=== PATIENT | female | born 1975 | race African-American/Black ===

== ENCOUNTER 2023-12-17 12:13 | Observation (INO) ==
[2023-12-17] MEDS ORDERED: NS 1,000 ML IV 1,000 ML ONE (12:26)
--- NOTE | 2023-12-17 12:33 | DR.DIZZY ---
HPI Time seen Time Seen by Provider: 12/17/23 12:30 PMH PMH Past Surgical History: Yes Family History Family Medical History: Diabetes Mellitus and Hypertension Social History Do you use any recreational Drugs:: No PE Vital Signs Vitals: Vital Signs Temperature 98.9 F Pulse Rate 107 Pulse Rate 113 Pulse Rate 108 Pulse Rate 107 Pulse Rate 125 Pulse Rate 111 Pulse Rate 125 Pulse Rate 119 Pulse Rate 116 Pulse Rate 117 Pulse Rate 116 Pulse Rate 119 Pulse Rate 117 Pulse Rate 112 Pulse Rate 123 Pulse Rate 123 Pulse Rate 124 Pulse Rate 126 Pulse Rate 123 Pulse Rate 135 Pulse Rate 136 Pulse Rate 137 Pulse Rate 138 Pulse Rate 130 Respiratory Rate 14 Respiratory Rate 15 Respiratory Rate 13 Respiratory Rate 13 Respiratory Rate 15 Respiratory Rate 15 Respiratory Rate 15 Respiratory Rate 13 Respiratory Rate 15 Respiratory Rate 15 Respiratory Rate 12 Respiratory Rate 13 Respiratory Rate 13 Respiratory Rate 12 Respiratory Rate 12 Respiratory Rate 16 Respiratory Rate 12 Respiratory Rate 16 Respiratory Rate 15 Respiratory Rate 15 Respiratory Rate 16 Respiratory Rate 16 Respiratory Rate 15 Respiratory Rate 25 Blood Pressure 138/75 Blood Pressure 138/70 Blood Pressure 116/76 Blood Pressure 115/89 Blood Pressure 115/89 Blood Pressure 115/89 Blood Pressure 154/94 Blood Pressure 173/102 Blood Pressure 134/79 Blood Pressure 132/77 Blood Pressure 187/78 Blood Pressure 138/61 Blood Pressure 138/61 Blood Pressure 140/80 O2 Sat by Pulse Oximetry 100 O2 Sat by Pulse Oximetry 100 O2 Sat by Pulse Oximetry 100 O2 Sat by Pulse Oximetry 100 O2 Sat by Pulse Oximetry 100 O2 Sat by Pulse Oximetry 100 O2 Sat by Pulse Oximetry 100 O2 Sat by Pulse Oximetry 100 O2 Sat by Pulse Oximetry 100 O2 Sat by Pulse Oximetry 100 O2 Sat by Pulse Oximetry 100 O2 Sat by Pulse Oximetry 100 O2 Sat by Pulse Oximetry 100 O2 Sat by Pulse Oximetry 100 O2 Sat by Pulse Oximetry 100 O2 Sat by Pulse Oximetry 100 O2 Sat by Pulse Oximetry 100 O2 Sat by Pulse Oximetry 92 O2 Sat by Pulse Oximetry 100 O2 Sat by Pulse Oximetry 100 O2 Sat by Pulse Oximetry 100 O2 Sat by Pulse Oximetry 99 O2 Sat by Pulse Oximetry 100 O2 Sat by Pulse Oximetry 100 ROR Labs Reviewed 12/17/23 12:40 12/17/23 13:40 Laboratory: WBC 6.2 X10^3/uL (3.6-10.0) 12/17/23 12:40 RBC 5.69 X10^6/uL (3.5-5.4) H 02/19/24 12:40 Hgb 14.1 g/dL (12.0-16.0) 12/17/23 12:40 Hct 44.0 % (36.0-47.0) 12/17/23 12:40 MCV 77.4 fL (80.0-100.0) L 12/17/23 12:40 MCH 24.8 pg (27.0-34.0) L 12/17/23 12:40 MCHC 32.1 g/dL (33.0-35.0) L 12/17/23 12:40 RDW 18.9 % (11.6-16.5) H 12/17/23 12:40 Plt Count 286 X10^3/uL (150.0-450.0) 12/17/23 12:40 MPV 7.9 fL (7.4-11.0) 12/17/23 12:40 Neut % (Auto) 85.5 % (42.0-75.0) H 12/17/23 12:40 Lymph % (Auto) 10.6 % (21.0-51.0) L 12/17/23 12:40 [place] % (Auto) 3.4 % (0.0-13.0) 12/17/23 12:40 Eos % (Auto) 0.3 % (0.9-2.9) L 12/17/23 12:40 Baso % (Auto) 0.2 % (0.2-1.0) 12/17/23 12:40 Neut # (Auto) 5.3 x10^3/uL (2.2-4.8) H 12/17/23 12:40 Lymph # (Auto) 0.7 X10^3/uL (1.3-2.9) L 12/17/23 12:40 [place] # (Auto) 0.2 x10^3/uL (0.3-0.8) L 12/17/23 12:40 Eos # (Auto) 0.0 x10^3/uL (0.0-0.2) 12/17/23 12:40 Baso # (Auto) 0.0 X10^3/uL (0.0-0.1) 12/17/23 12:40 Absolute Nucleated RBC 0.0 /100WBC 12/17/23 12:40 D-Dimer 0.36 ug/ml (0.0-0.57) 12/17/23 13:40 Sodium 152 mmol/L (136-145) H* 12/17/23 13:40 Corrected Sodium TNP 12/17/23 13:40 Potassium 3.8 mmol/L (3.5-5.1) 12/17/23 13:40 Chloride 113 mmol/L (98-107) H 12/17/23 13:40 Carbon Dioxide 27.8 mmol/L (21-32) 12/17/23 13:40 BUN 14 mg/dL (7-18) 12/17/23 13:40 Creatinine 0.59 mg/dL (0.55-1.02) 12/17/23 13:40 Est GFR (MDRD) Af Amer > 60 (>60) 12/17/23 13:40 Est GFR (MDRD) Non-Af > 60 (>60) 12/17/23 13:40 Glucose 91 mg/dL (65-99) 12/17/23 13:40 POC Glucose (mg/dL) 144 mg/dL (65-99) H 12/17/23 12:24 Calcium 8.2 mg/dL (8.5-10.1) L 12/17/23 13:40 Corrected Calcium TNP 12/17/23 13:40 Total Bilirubin 0.50 mg/dL (0.2-1.0) 12/17/23 13:40 AST 27 Units/L (15-37) 12/17/23 13:40 ALT 33 Units/L (12-78) 12/17/23 13:40 Alkaline Phosphatase 72 Units/L (46-116) 12/17/23 13:40 Creatine Kinase 68 Units/L (26-192) 12/17/23 13:40 Troponin I High Sens 14.1 ng/L (4.0-60.0) 12/17/23 13:40 Total Protein 7.4 g/dL (6.4-8.2) 12/17/23 13:40 Albumin 3.5 g/dL (3.4-5.0) 12/17/23 13:40 Globulin 3.9 g/dL (2.5-4.5) 12/17/23 13:40 Albumin/Globulin Ratio 0.9 Ratio (1.1-2.1) L 12/17/23 13:40 Specimen Type Catherized urine 12/17/23 13:00 Urine Color Yellow (YELLOW) 12/17/23 13:00 Urine Appearance Slightly hazy (CLEAR) 12/17/23 13:00 Urine pH 5.0 (5.0 - 8.0) 12/17/23 13:00 Ur Specific [place] 1.030 (1.000-1.030) 12/17/23 13:00 Urine Protein 4+ (NEGATIVE) 12/17/23 13:00 Urine Glucose (UA) Negative (NEGATIVE) 12/17/23 13:00 Urine Ketones 2+ (NEGATIVE) 12/17/23 13:00 Urine Blood 1+ (NEGATIVE) 12/17/23 13:00 Urine Nitrite Negative (NEGATIVE) 12/17/23 13:00 Urine Bilirubin Negative (NEGATIVE) 12/17/23 13:00 Urine Urobilinogen Normal (NORMAL) 12/17/23 13:00 Ur Leukocyte Esterase 1+ (NEGATIVE) 12/17/23 13:00 Urine RBC 0-2 /HPF (0-3) 12/17/23 13:00 Urine WBC 0-2 /HPF (0-5) 12/17/23 13:00 Ur Squamous Epith Cells Few /HPF (NEGATIVE) 12/17/23 13:00 Amorphous Sediment 1+ /HPF (NEGATIVE) 12/17/23 13:00 Urine Bacteria Trace /HPF (NEGATIVE) 12/17/23 13:00 Hyaline Casts Few /LPF (NEGATIVE) 12/17/23 13:00 Ur Culture Indicated? No/not indicated 12/17/23 13:00 SARS-CoV-2 (PCR) Negative (NEGATIVE) 12/17/23 12:30 Influenza Type A (PCR) Negative (NEGATIVE) 12/17/23 12:30 Influenza Type B (PCR) Negative (NEGATIVE) 12/17/23 12:30 RSV (PCR) Negative (NEGATIVE) 12/17/23 12:30 Opioid Opioid Risk Tool Age (Kofi box if 16-45): No History of Preadolescent Sexual Abuse: No Total: 0 Total Score Risk Category: Low Risk Copyright: Loco KAM predicting aberrant behaviors Discharge Plan Diagnosis Discharge Problem: Diabetes mellitus, labile, Hypernatremia Discharge Plan Patient Disposition: 09 ADMITTED INPATIENT Condition: Stable Orders to Discharge Patient Discharge Orders: Transfer (Routine); Ordered 12/17/23 Ordered By: KAMERON BEVERLY
--- NOTE | 2023-12-17 12:40 | EKG ---
Test Reason : weakness,tachycardia Blood Pressure : */* mmHG Vent. Rate : 140 BPM Atrial Rate : 140 BPM P-R Int : 136 ms QRS Dur : 58 ms QT Int : 352 ms P-R-T Axes : * 47 40 degrees QTc Int : 537 ms Sinus tachycardia Nonspecific ST and T wave abnormality Abnormal ECG When compared with ECG of 17-JUL-2023 10:06, Vent. rate has increased BY 78 BPM T wave inversion now evident in Anterior leads Confirmed by Hans Moeller MD ([id number]) on 12/17/2023 1:39:25 PM Referred By: Confirmed By: Hans Moeller MD
[2023-12-17] MEDS: NS 1,000 ML IV 1,000 ML IV ONE (12:46)
[2023-12-17 12:56] LABS: BASOPHILS % (AUTO) 0.2 % (0.2-1.0); EOSINOPHILS % (AUTO) 0.3 % (0.9-2.9); HEMOGLOBIN 14.1 g/dL (12.0-16.0); LYMPHOCYTES # (AUTO) 0.7 X10^3/uL (1.3-2.9); LYMPHOCYTES % (AUTO) 10.6 % (21.0-51.0); MEAN CORPUSCULAR HEMOGLOBIN 24.8 pg (27.0-34.0); MEAN CORPUSCULAR HGB CONC 32.1 g/dL (33.0-35.0); MEAN CORPUSCULAR VOLUME 77.4 fL (80.0-100.0); MEAN PLATELET VOLUME 7.9 fL (7.4-11.0); MONOCYTES # (AUTO) 0.2 x10^3/uL (0.3-0.8); MONOCYTES % (AUTO) 3.4 % (0.0-13.0); NEUTROPHILS # (AUTO) 5.3 x10^3/uL (2.2-4.8); NEUTROPHILS % (AUTO) 85.5 % (42.0-75.0); PLATELET COUNT 286 X10^3/uL (150.0-450.0); RED BLOOD COUNT 5.69 X10^6/uL (3.5-5.4); RED CELL DISTRIBUTION WIDTH 18.9 % (11.6-16.5); WHITE BLOOD COUNT 6.2 X10^3/uL (3.6-10.0)
[2023-12-17 13:17] LABS: BILIRUBIN,URINE NEGATIVE (NEGATIVE); BLOOD/HEMOGLOBIN,URINE 1+ (NEGATIVE); GLUCOSE, URINE NEGATIVE (NEGATIVE); KETONES,URINE 2+ (NEGATIVE); LEUKOCYTE ESTERASE ,URINE 1+ (NEGATIVE); NITRITES,URINE NEGATIVE (NEGATIVE); PROTEIN,URINE 4+ (NEGATIVE); UROBILINOGEN,URINE NORMAL (NORMAL)
--- NOTE | 2023-12-17 13:20 | RAD ---
EXAM:CHEST, 1 VIEWHISTORY:SOB;COMPARISON:None .br.br linear scarring at the cardiac apex. This finding is so small as to probably be clinically insignificant.Heart size is normal.The bones are unremarkable.Surgical clips seen in the upper left abdomen. EKG leads are noted.IMPRESSION:1. No significant abnormalityTHIS IS AN ELECTRONICALLY VERIFIED FINAL REPORT12/17/2023 1:17 PM - Electronically signed by Julian Peraza MD
[2023-12-17 13:25] LABS: COLOR,URINE YELLOW (YELLOW)
[2023-12-17 13:26] LABS: APPEARANCE,URINE SLIGHTLY HAZY (CLEAR); BACTERIA,URINE TRACE /HPF (NEGATIVE); HYALINE CASTS, URINE FEW /LPF (NEGATIVE); RBC,URINE 0-2 /HPF (0-3); SQUAMOUS EPITHELIAL CELL,UR FEW /HPF (NEGATIVE)
[2023-12-17 14:05] LABS: ALANINE AMINOTRANSFERASE 33 Units/L (12-78); ALBUMIN 3.5 g/dL (3.4-5.0); ALKALINE PHOSPHATASE 72 Units/L (46-116); ASPARTATE AMINO TRANSFERASE 27 Units/L (15-37); BLOOD UREA NITROGEN 14 mg/dL (7-18); CALCIUM 8.2 mg/dL (8.5-10.1); CARBON DIOXIDE 27.8 mmol/L (21-32); CHLORIDE 113 mmol/L (98-107); CREATINE KINASE 68 Units/L (26-192); CREATININE 0.59 mg/dL (0.55-1.02); GLUCOSE 91 mg/dL (65-99); POTASSIUM 3.8 mmol/L (3.5-5.1); TOTAL PROTEIN 7.4 g/dL (6.4-8.2); eGFR NON BLACK RACES > 60 (>60)
[2023-12-17 14:27] LABS: SODIUM 152 mmol/L (136-145)
[2023-12-17] MEDS ORDERED: DUONEB 0.5 MG/3 MG (3 mL) NEB PRN ×2 (17:50→18:09)
[2023-12-17] MEDS ORDERED: NovoLIN R (or HumuLIN R) SUBCUT PRN (18:09)
[2023-12-17] MEDS: NS 1/2 1,000 ML IV 1,000 ML IV SCH (18:30)
[2023-12-17] MEDS: NS 1/2 1,000 ML IV 1,000 ML IV ONE (18:51)
[2023-12-17 20:15] VITALS: BMI 20.8
[2023-12-17] MEDS: LOPRESSOR TAB 25 MG PO SCH (21:45)
[2023-12-17] MEDS: PEPCID TAB 20 MG PO SCH (21:46)
[2023-12-17] MEDS: SEROquel TAB 25 mg PO SCH (21:47)
[2023-12-17] MEDS: PARLODEL PO SCH (21:47)
[2023-12-18] MEDS ORDERED: NS 1/2 1,000 ML IV 1,000 ML IV ONE (02:07)
[2023-12-18 05:25] LABS: BASOPHILS % (AUTO) 0.5 % (0.2-1.0); EOSINOPHILS # (AUTO) 0.1 x10^3/uL (0.0-0.2); EOSINOPHILS % (AUTO) 1.4 % (0.9-2.9); HEMATOCRIT 37.1 % (36.0-47.0); LYMPHOCYTES # (AUTO) 1.3 X10^3/uL (1.3-2.9); MEAN CORPUSCULAR HEMOGLOBIN 24.9 pg (27.0-34.0); MEAN CORPUSCULAR HGB CONC 32.3 g/dL (33.0-35.0); MEAN PLATELET VOLUME 7.8 fL (7.4-11.0); MONOCYTES # (AUTO) 0.5 x10^3/uL (0.3-0.8); MONOCYTES % (AUTO) 9.5 % (0.0-13.0); NEUTROPHILS % (AUTO) 61.6 % (42.0-75.0); PLATELET COUNT 248 X10^3/uL (150.0-450.0); RED BLOOD COUNT 4.82 X10^6/uL (3.5-5.4); RED CELL DISTRIBUTION WIDTH 18.3 % (11.6-16.5); WHITE BLOOD COUNT 4.9 X10^3/uL (3.6-10.0)
[2023-12-18 05:42] LABS: ALANINE AMINOTRANSFERASE 35 Units/L (12-78); ALBUMIN 3.6 g/dL (3.4-5.0); ALKALINE PHOSPHATASE 69 Units/L (46-116); ASPARTATE AMINO TRANSFERASE 26 Units/L (15-37); BLOOD UREA NITROGEN 9 mg/dL (7-18); CARBON DIOXIDE 29.7 mmol/L (21-32); CHLORIDE 110 mmol/L (98-107); CREATININE 0.58 mg/dL (0.55-1.02); POTASSIUM 3.8 mmol/L (3.5-5.1); SODIUM 149 mmol/L (136-145); TOTAL PROTEIN 7.6 g/dL (6.4-8.2); eGFR NON BLACK RACES > 60 (>60)
[2023-12-18 05:47] LABS: GLUCOSE 50 mg/dL (65-99)
[2023-12-18 07:49] VITALS: O2SAT 100
[2023-12-18] MEDS: DESYREL PO SCH (08:40)
--- NOTE | 2023-12-18 08:54 | DR.SSS ---
SHORT STAY SUMMARY Admission Date Date of Admission: 12/17/23 Discharge Date Discharge Date: 12/18/23 Admission Diagnoses Admission Diagnoses: Hypernatremia Hypoglycemia Discharge Diagnoses Discharge Diagnoses: Hypernatremia Hypoglycemia Chief Complaint Chief Complaint: fatigue History of Present Illness History of Present Illness: Patient is a 48-year-old female with past medical history of intellectual disability, diabetes mellitus, hypertension, presenting with fatigue. Per mother patient was feeling more tired and she had noticed that she was sweating. She has noticed recent low fingerstick glucose levels and has had to give her orange juice to bring up her sugar levels. Labs/imaging: WBC 4.9, hemoglobin 12, platelets 248, sodium 152-149, potassium 3.8, creatinine 0.58, glucose 76. Patient was admitted for hypernatremia and hypoglycemia. She was started on IV fluids half-normal saline and sliding scale insulin. This morning patient is doing well her glucose levels are appropriate. Her hyponatremia has improved. Instructed mother to give Lantus only in the morning and discontinue evening dose. She will also need to reduce Lantus from 44 units to 30 units daily. A1c is 6.3. Hypernatremia to continue to resolve with adequate hydration at home. Patient discharged in stable condition. Mother instructed to contact clinic with glucose levels so that further insulin adjustments can be performed if necessary. Past Medical History Past Medical History: Anxiety, Diabetes, GERD and Hypertension Past Surgical History Surgical History: Neurosurgery and Lithotripsy Allergies Allergies Allergy/AdvReac Type Severity Reaction Status Date / Time No Known Drug Allergies Allergy Unknown Verified 11/29/23 09:53 Medications Home Medications: No Known Drug Allergies Allergy (Unknown, Verified 11/29/23 09:53) New Prescriptions insulin glargine 100 unit/mL subcutaneous solution (Lantus U-100 Insulin) 30 unit (0.3 mL) subcut DAILY 30 days #26.4 mL 12/18/23 [Rx] Family History Family Medical History: Diabetes Mellitus and Hypertension Social History Does patient currently use any type of tobacco product: No Have you used tobacco products in the last 12 months: No Type of Tobacco Use: None Does any household member use tobacco: No Alcohol Use: None Drug Use: None Review of Systems Constitutional: Other (fatigue) Eyes: No Symptoms Reported ENT: No Symptoms Reported Respiratory: No Symptoms Reported Cardiovascular: No Symptoms Reported Gastrointestinal: No Symptoms Reported Genitourinary: No Symptoms Reported Musculoskeletal: No Symptoms Reported Skin: No Symptoms Reported Neurological: No Symptoms Reported Physical Exam Vital Signs: Last Vital Signs Temp 98.5 F 12/18/23 04:01 Pulse 92 H 12/18/23 07:01 Resp 12 12/18/23 07:01 BP 88/60 12/18/23 07:01 Pulse Ox 100 12/18/23 07:01 O2 Del Method Nasal Cannula 12/18/23 06:32 O2 Flow Rate 2 12/18/23 06:32 FiO2 28 12/17/23 20:40 Oriented: Other (intellectual disability) Eyes: Normal Ear: Normal Nose: Normal Throat: Normal Respiratory: Clear Throughout Cardiovascular: Normal : Normal Auscultation: Bowel Sounds: Normal Palpation: Normal Tenderness: Normal Skin: Normal Musculoskeletal: Normal Psychiatric: Normal Mood Description: Calm Speech Pattern: Clear Labs Labs: Laboratory Last Values WBC 4.9 X10^3/uL (3.6-10.0) 12/18/23 04:54 RBC 4.82 X10^6/uL (3.5-5.4) 12/18/23 04:54 Hgb 12.0 g/dL (12.0-16.0) D 12/18/23 04:54 Hct 37.1 % (36.0-47.0) 12/18/23 04:54 MCV 77.0 fL (80.0-100.0) L 12/18/23 04:54 MCH 24.9 pg (27.0-34.0) L 12/18/23 04:54 MCHC 32.3 g/dL (33.0-35.0) L 12/18/23 04:54 RDW 18.3 % (11.6-16.5) H 12/18/23 04:54 Plt Count 248 X10^3/uL (150.0-450.0) 12/18/23 04:54 MPV 7.8 fL (7.4-11.0) 12/18/23 04:54 Neut % (Auto) 61.6 % (42.0-75.0) 12/18/23 04:54 Lymph % (Auto) 27.0 % (21.0-51.0) 12/18/23 04:54 [place] % (Auto) 9.5 % (0.0-13.0) 12/18/23 04:54 Eos % (Auto) 1.4 % (0.9-2.9) 12/18/23 04:54 Baso % (Auto) 0.5 % (0.2-1.0) 12/18/23 04:54 Neut # (Auto) 3.0 x10^3/uL (2.2-4.8) 12/18/23 04:54 Lymph # (Auto) 1.3 X10^3/uL (1.3-2.9) 12/18/23 04:54 [place] # (Auto) 0.5 x10^3/uL (0.3-0.8) 12/18/23 04:54 Eos # (Auto) 0.1 x10^3/uL (0.0-0.2) 12/18/23 04:54 Baso # (Auto) 0.0 X10^3/uL (0.0-0.1) 12/18/23 04:54 Absolute Nucleated RBC 0.1 /100WBC 12/18/23 04:54 D-Dimer 0.36 ug/ml (0.0-0.57) 12/17/23 13:40 Sodium 149 mmol/L (136-145) H 12/18/23 04:54 Corrected Sodium TNP 12/18/23 04:54 Potassium 3.8 mmol/L (3.5-5.1) 12/18/23 04:54 Chloride 110 mmol/L (98-107) H 12/18/23 04:54 Carbon Dioxide 29.7 mmol/L (21-32) 12/18/23 04:54 BUN 9 mg/dL (7-18) 12/18/23 04:54 Creatinine 0.58 mg/dL (0.55-1.02) 12/18/23 04:54 Est GFR (MDRD) Af Amer > 60 (>60) 12/18/23 04:54 Est GFR (MDRD) Non-Af > 60 (>60) 12/18/23 04:54 Glucose 50 mg/dL (65-99) L* 12/18/23 04:54 POC Glucose (mg/dL) 76 mg/dL (65-99) 12/18/23 05:56 Hemoglobin A1c 6.3 % 12/18/23 04:54 Calcium 9.0 mg/dL (8.5-10.1) 12/18/23 04:54 Corrected Calcium TNP 12/18/23 04:54 Magnesium 2.0 mg/dL (2.0-2.9) 12/18/23 04:54 Total Bilirubin 0.70 mg/dL (0.2-1.0) 12/18/23 04:54 AST 26 Units/L (15-37) 12/18/23 04:54 ALT 35 Units/L (12-78) 12/18/23 04:54 Alkaline Phosphatase 69 Units/L (46-116) 12/18/23 04:54 Creatine Kinase 68 Units/L (26-192) 12/17/23 13:40 Troponin I High Sens 14.1 ng/L (4.0-60.0) 12/17/23 13:40 Total Protein 7.6 g/dL (6.4-8.2) 12/18/23 04:54 Albumin 3.6 g/dL (3.4-5.0) 12/18/23 04:54 Globulin 4.0 g/dL (2.5-4.5) 12/18/23 04:54 Albumin/Globulin Ratio 0.9 Ratio (1.1-2.1) L 12/18/23 04:54 Specimen Type Catherized urine 12/17/23 13:00 Urine Color Yellow (YELLOW) 12/17/23 13:00 Urine Appearance Slightly hazy (CLEAR) 12/17/23 13:00 Urine pH 5.0 (5.0 - 8.0) 12/17/23 13:00 Ur Specific [place] 1.030 (1.000-1.030) 12/17/23 13:00 Urine Protein 4+ (NEGATIVE) 12/17/23 13:00 Urine Glucose (UA) Negative (NEGATIVE) 12/17/23 13:00 Urine Ketones 2+ (NEGATIVE) 12/17/23 13:00 Urine Blood 1+ (NEGATIVE) 12/17/23 13:00 Urine Nitrite Negative (NEGATIVE) 12/17/23 13:00 Urine Bilirubin Negative (NEGATIVE) 12/17/23 13:00 Urine Urobilinogen Normal (NORMAL) 12/17/23 13:00 Ur Leukocyte Esterase 1+ (NEGATIVE) 12/17/23 13:00 Urine RBC 0-2 /HPF (0-3) 12/17/23 13:00 Urine WBC 0-2 /HPF (0-5) 12/17/23 13:00 Ur Squamous Epith Cells Few /HPF (NEGATIVE) 12/17/23 13:00 Amorphous Sediment 1+ /HPF (NEGATIVE) 12/17/23 13:00 Urine Bacteria Trace /HPF (NEGATIVE) 12/17/23 13:00 Hyaline Casts Few /LPF (NEGATIVE) 12/17/23 13:00 Ur Culture Indicated? No/not indicated 12/17/23 13:00 SARS-CoV-2 (PCR) Negative (NEGATIVE) 12/17/23 12:30 Influenza Type A (PCR) Negative (NEGATIVE) 12/17/23 12:30 Influenza Type B (PCR) Negative (NEGATIVE) 12/17/23 12:30 RSV (PCR) Negative (NEGATIVE) 12/17/23 12:30 Hospital Course Hospital Course: Patient is a 48-year-old female with past medical history of intellectual disability, diabetes mellitus, hypertension, presenting with fatigue. Per mother patient was feeling more tired and she had noticed that she was sweating. She has noticed recent low fingerstick glucose levels and has had to give her orange juice to bring up her sugar levels. Labs/imaging: WBC 4.9, hemoglobin 12, platelets 248, sodium 152-149, potassium 3.8, creatinine 0.58, glucose 76. Patient was admitted for hypernatremia and hypoglycemia. She was started on IV fluids half-normal saline and sliding scale insulin. This morning patient is doing well her glucose levels are appropriate. Her hyponatremia has improved. Instructed mother to give Lantus only in the morning and discontinue evening dose. She will also need to reduce Lantus from 44 units to 30 units daily. A1c is 6.3. Hypernatremia to continue to resolve with adequate hydration at home. Patient discharged in stable condition. Mother instructed to contact clinic with glucose levels so that further insulin adjustments can be performed if necessary. Discharge Medications Discharge Medications: Home Medication List insulin glargine 100 unit/mL subcutaneous solution (Lantus U-100 Insulin) 30 unit (0.3 mL) subcut DAILY 30 days #26.4 mL 12/18/23 [Rx] Prescriptions: insulin glargine [Lantus U-100 Insulin] Emil Ashraf Discharge Plan Discharge Plan Patient Disposition: HOME, SELF-CARE Condition: Stable Health Concerns: Post Hospitalization: new medications and changes needed to prevent readmission or further decline. Pt educated and given instructions on all concerns. Plan of Treatment: Continue with present treatment and follow up plan. Pt is to keep follow up appointment as instructed and take medications as ordered. Prescriptions: Continued (DME) FreeStyle Stew 14 Day Sensor Kit See Rx Instructions .Route Qty: 1 0RF Rx Instructions: As directed ipratropium-albuterol 0.5 mg-3 mg(2.5 mg base)/3 mL solution for nebulization 3 ml inhalation Q4-6H PRN (Reason: wheezing) Qty: 90 0RF quetiapine 50 mg tablet 50 mg PO TID 30 Days Qty: 90 2RF metoprolol tartrate 25 mg tablet 25 mg PO BID 30 Days Qty: 60 2RF famotidine 20 mg tablet 20 mg PO BID 30 Days Qty: 60 2RF bromocriptine 5 mg capsule 5 mg PO TID 30 Days Qty: 90 2RF Rx Instructions: must administer with a meal/food trazodone 50 mg tablet 50 mg PO QDAY 30 Days Qty: 30 2RF (DME) FreeStyle Stew 14 Day [place] Misc See Rx Instructions .Route Qty: 1 5RF Rx Instructions: As directed amlodipine [Norvasc] 5 mg tablet 5 mg PO QDAY 30 Days Qty: 30 2RF Changed insulin glargine [Lantus U-100 Insulin] 100 unit/mL solution 30 unit subcut DAILY 30 Days Qty: 26.4 3RF Orders to Discharge Patient Discharge Orders: Discharge (Routine); Ordered 12/18/23 Ordered By: Emil Ashraf Follow ups/Referrals Follow ups/Referrals: Emil Ashraf [Primary Care Provider] - 3 days Instructions Stand Alone Forms: Excuse From Work or School, Post Hospital Follow Up Care
[2023-12-18] MEDS ORDERED: NORVASC TAB 5 MG PO SCH (09:00)
[2023-12-18 09:42] VITALS: TEMP 97.5
[2023-12-18 11:22] VITALS: BP 124/67; PULSE 89; RESP 15
[2023-12-18] MEDS ORDERED: PATIENT'S HOME MEDICATION PO SCH (14:00)
== END 2023-12-18 12:36 | disposition home health service (06) ==
LOC: ER 12:13 → ICU 12:13
PROVIDERS: ADMIT Family Medicine; ATTEND Family Medicine
DX: R94.31 Abnormal electrocardiogram [ECG] [EKG]; R53.83 Other fatigue; I10 Essential (primary) hypertension; Z79.4 Long term (current) use of insulin; R06.02 Shortness of breath; E87.0 Hyperosmolality and hypernatremia; F79 Unspecified intellectual disabilities; E11.649 Type 2 diabetes mellitus with hypoglycemia without coma

== ENCOUNTER 2023-12-20 02:39 | Inpatient (IN) ==
[2023-12-20 03:23] LABS: BASOPHILS % (AUTO) 0.3 % (0.2-1.0); EOSINOPHILS % (AUTO) 0.6 % (0.9-2.9); HEMATOCRIT 37.6 % (36.0-47.0); HEMOGLOBIN 11.9 g/dL (12.0-16.0); LYMPHOCYTES # (AUTO) 0.7 X10^3/uL (1.3-2.9); LYMPHOCYTES % (AUTO) 11.2 % (21.0-51.0); MEAN CORPUSCULAR HEMOGLOBIN 24.6 pg (27.0-34.0); MEAN CORPUSCULAR HGB CONC 31.7 g/dL (33.0-35.0); MEAN CORPUSCULAR VOLUME 77.8 fL (80.0-100.0); MEAN PLATELET VOLUME 7.9 fL (7.4-11.0); MONOCYTES # (AUTO) 0.2 x10^3/uL (0.3-0.8); NEUTROPHILS # (AUTO) 5.1 x10^3/uL (2.2-4.8); NEUTROPHILS % (AUTO) 83.9 % (42.0-75.0); PLATELET COUNT 257 X10^3/uL (150.0-450.0); RED BLOOD COUNT 4.83 X10^6/uL (3.5-5.4); RED CELL DISTRIBUTION WIDTH 18.1 % (11.6-16.5); WHITE BLOOD COUNT 6.1 X10^3/uL (3.6-10.0)
[2023-12-20 03:31] LABS: ALANINE AMINOTRANSFERASE 32 Units/L (12-78); ALBUMIN 3.9 g/dL (3.4-5.0); ALKALINE PHOSPHATASE 82 Units/L (46-116); ASPARTATE AMINO TRANSFERASE 24 Units/L (15-37); BLOOD UREA NITROGEN 16 mg/dL (7-18); CALCIUM 9.2 mg/dL (8.5-10.1); CARBON DIOXIDE 29.2 mmol/L (21-32); CHLORIDE 109 mmol/L (98-107); COR NA(FOR HYPERGLY) 152 mmol/L (136-145); CREATININE 0.82 mg/dL (0.55-1.02); GLUCOSE 160 mg/dL (65-99); MAGNESIUM 1.8 mg/dL (2.0-2.9); POTASSIUM 3.6 mmol/L (3.5-5.1); eGFR NON BLACK RACES > 60 (>60)
[2023-12-20 03:35] LABS: SODIUM 151 mmol/L (136-145)
--- NOTE | 2023-12-20 03:35 | DR.SOBA ---
HPI <Darlyn AlexandergginsGarcíaNapoleon - Last Filed: 12/20/23 20:18> Time Seen Time Seen by Provider: 12/20/23 03:35 Primary Care Physician Primary Care Physician: DINAH Ortiz Chief Complaint Doctors Comments: Patient was diagnosed with pneumonia and was given doxycycline 100mg po BID on 12/19/2023. Mother states that patient was ob served in her bedroom today diaphoretic and sob.Mother called EMS and when they arrived patient had an 02 sat in the 60's on Rm air. Patient was given supplemental 02 (2L NC) and 02 sat is 98%.Mother states that patient began to have malaise yesterday afternoon. Mother denies:fever,cough,n,v. Chief Complaint:: PT TO ED VIA EMS FOR RESP DISTRESS. EMS STATES HER CAREGIVER SAID SHE BECAME DIAPHORETIC AND SOB. PT IS 98% ON 2LNC. PT DC FROM THIS FACILITY THIS MORNING. COVID-19 Coronavirus risk:travel/contact w/high risk person: No Has patient experienced Coronavirus symptoms: No Source History Provided: Patient Mode of Arrival Mode of Arrival: EMS Timing Onset of Chief Complaint: 12/17/23 PMH <Darlyn KorinaRebelNapoleon - Last Filed: 12/20/23 20:18> PMH Past Medical History: Yes Past Medical History: Anxiety, CVA, Diabetes, GERD and Hypertension Past Medical History Comment: CEREBRAL ANEURYSM, INSOMNIA, TREMORS Past Surgical History: Yes Surgical History: Neurosurgery and Lithotripsy Past Surgical History Comment: TRACH Family History History of Family Medical Conditions: Yes Family Medical History: Diabetes Mellitus and Hypertension Social History Alcohol Use: None Do you use any recreational Drugs:: No Lives With: Family Lives Where: Home Travel Risk Coronavirus risk:travel/contact w/high risk person: No Has patient experienced Coronavirus symptoms: No Infectious screening Have you traveled outside the country in the last 6 months?: No Isolation: Standard ROS <Darlyn Shankar - Last Filed: 12/20/23 20:18> Review of Systems Constitutional: Diaphoresis Eyes: No Symptoms Reported ENTM: No Symptoms Reported Respiratoy: Short of Breath Cardiovascular: No Symptoms Reported Gastrointestinal/Abdominal: No Symptoms Reported Genitourinary: No Symptoms Reported Neurological: No Symptoms Reported Musculoskeletal: No Symptoms Reported Integumentary: No Symptoms Reported Hematologic/Lymphatic: No Symptoms Reported Endocrine: No Symptoms Reported Psychiatric: No Symptoms Reported All Other Systems: Reviewed and Negative PE <Darlyn Shankar - Last Filed: 12/20/23 20:18> Vital Signs Vitals: Vital Signs Pulse Rate 107 Pulse Rate 98 Pulse Rate 113 Pulse Rate 113 Pulse Rate 121 Pulse Rate 116 Pulse Rate 114 Pulse Rate 111 Pulse Rate 112 Pulse Rate 116 Pulse Rate 123 Pulse Rate 123 Pulse Rate 122 Pulse Rate 115 Pulse Rate 109 Pulse Rate 102 Pulse Rate 105 Pulse Rate 104 Pulse Rate 113 Pulse Rate 120 Pulse Rate 106 Pulse Rate 109 Pulse Rate 102 Pulse Rate 98 Pulse Rate 111 Pulse Rate 114 Pulse Rate 113 Pulse Rate 114 Pulse Rate 112 Pulse Rate 112 Pulse Rate 116 Pulse Rate 119 Respiratory Rate 14 Respiratory Rate 13 Respiratory Rate 14 Respiratory Rate 14 Respiratory Rate 23 Respiratory Rate 20 Respiratory Rate 18 Respiratory Rate 16 Respiratory Rate 17 Respiratory Rate 19 Respiratory Rate 17 Respiratory Rate 17 Respiratory Rate 19 Respiratory Rate 16 Respiratory Rate 17 Respiratory Rate 13 Respiratory Rate 12 Respiratory Rate 13 Respiratory Rate 18 Respiratory Rate 20 Respiratory Rate 15 Respiratory Rate 14 Respiratory Rate 16 Respiratory Rate 16 Respiratory Rate 12 Respiratory Rate 15 Respiratory Rate 14 Respiratory Rate 16 Respiratory Rate 16 Respiratory Rate 17 Respiratory Rate 15 Respiratory Rate 16 Blood Pressure 119/68 Blood Pressure 113/66 Blood Pressure 122/62 Blood Pressure 100/56 Blood Pressure 104/72 Blood Pressure 104/72 Blood Pressure 118/72 Blood Pressure 118/72 Blood Pressure 118/72 Blood Pressure 118/71 Blood Pressure 118/71 Blood Pressure 118/71 Blood Pressure 128/73 Blood Pressure 128/73 Blood Pressure 128/73 Blood Pressure 128/73 Blood Pressure 131/61 Blood Pressure 131/61 Blood Pressure 131/61 Blood Pressure 141/78 Blood Pressure 141/78 Blood Pressure 141/78 Blood Pressure 113/58 Blood Pressure 131/72 Blood Pressure 114/80 Blood Pressure 108/62 Blood Pressure 121/76 Blood Pressure 121/76 Blood Pressure 121/75 Blood Pressure 113/77 O2 Sat by Pulse Oximetry 95 O2 Sat by Pulse Oximetry 83 O2 Sat by Pulse Oximetry 93 O2 Sat by Pulse Oximetry 100 O2 Sat by Pulse Oximetry 100 O2 Sat by Pulse Oximetry 100 O2 Sat by Pulse Oximetry 92 O2 Sat by Pulse Oximetry 100 O2 Sat by Pulse Oximetry 100 O2 Sat by Pulse Oximetry 100 O2 Sat by Pulse Oximetry 100 O2 Sat by Pulse Oximetry 100 O2 Sat by Pulse Oximetry 100 O2 Sat by Pulse Oximetry 100 O2 Sat by Pulse Oximetry 99 O2 Sat by Pulse Oximetry 99 O2 Sat by Pulse Oximetry 98 O2 Sat by Pulse Oximetry 100 O2 Sat by Pulse Oximetry 97 O2 Sat by Pulse Oximetry 96 O2 Sat by Pulse Oximetry 95 O2 Sat by Pulse Oximetry 99 O2 Sat by Pulse Oximetry 99 O2 Sat by Pulse Oximetry 98 O2 Sat by Pulse Oximetry 96 General Limitations: No Limitations General Appearance: Alert and In No Apparent Distress Head Head Exam: Normal Inspection Eyes Eye exam: Normal Appearance ENT ENT Exam: Normal Exam Neck Neck Exam: Normal Inspection Chest Chest Inspection: Normal Inspection Respiratory Respiratory Exam: Other (decreased BS bilateral LL) Respiratory Exam: Bilateral: Decreased Breath Sounds and Lower: Decreased Breath Sounds Cardiovascular Cardiovascular Exam: Tachycardia Abdominal Exam Abdominal Exam: Normal Inspection, Normal Bowel Sounds and Soft Extremities Extremities Exam: Normal Inspection Back Back Exam: Normal Inspection Neurologic Neurological Exam: Alert and Oriented X3 Psychiatric Psychiatric Exam: Normal Affect and Normal Mood Skin Skin Exam: Warm, Dry, Intact and Normal Color <Felixsumit Medina - [facility] Filed: 12/20/23 11:00> Vital Signs Vitals: Vital Signs Pulse Rate 107 Pulse Rate 98 Pulse Rate 113 Pulse Rate 113 Pulse Rate 121 Pulse Rate 116 Pulse Rate 114 Pulse Rate 111 Pulse Rate 112 Pulse Rate 116 Pulse Rate 123 Pulse Rate 123 Pulse Rate 122 Pulse Rate 115 Pulse Rate 109 Pulse Rate 102 Pulse Rate 105 Pulse Rate 104 Pulse Rate 113 Pulse Rate 120 Pulse Rate 106 Pulse Rate 109 Pulse Rate 102 Pulse Rate 98 Pulse Rate 111 Pulse Rate 114 Pulse Rate 113 Pulse Rate 114 Pulse Rate 112 Pulse Rate 112 Pulse Rate 116 Pulse Rate 119 Respiratory Rate 14 Respiratory Rate 13 Respiratory Rate 14 Respiratory Rate 14 Respiratory Rate 23 Respiratory Rate 20 Respiratory Rate 18 Respiratory Rate 16 Respiratory Rate 17 Respiratory Rate 19 Respiratory Rate 17 Respiratory Rate 17 Respiratory Rate 19 Respiratory Rate 16 Respiratory Rate 17 Respiratory Rate 13 Respiratory Rate 12 Respiratory Rate 13 Respiratory Rate 18 Respiratory Rate 20 Respiratory Rate 15 Respiratory Rate 14 Respiratory Rate 16 Respiratory Rate 16 Respiratory Rate 12 Respiratory Rate 15 Respiratory Rate 14 Respiratory Rate 16 Respiratory Rate 16 Respiratory Rate 17 Respiratory Rate 15 Respiratory Rate 16 Blood Pressure 119/68 Blood Pressure 113/66 Blood Pressure 122/62 Blood Pressure 100/56 Blood Pressure 104/72 Blood Pressure 104/72 Blood Pressure 118/72 Blood Pressure 118/72 Blood Pressure 118/72 Blood Pressure 118/71 Blood Pressure 118/71 Blood Pressure 118/71 Blood Pressure 128/73 Blood Pressure 128/73 Blood Pressure 128/73 Blood Pressure 128/73 Blood Pressure 131/61 Blood Pressure 131/61 Blood Pressure 131/61 Blood Pressure 141/78 Blood Pressure 141/78 Blood Pressure 141/78 Blood Pressure 113/58 Blood Pressure 131/72 Blood Pressure 114/80 Blood Pressure 108/62 Blood Pressure 121/76 Blood Pressure 121/76 Blood Pressure 121/75 Blood Pressure 113/77 O2 Sat by Pulse Oximetry 95 O2 Sat by Pulse Oximetry 83 O2 Sat by Pulse Oximetry 93 O2 Sat by Pulse Oximetry 100 O2 Sat by Pulse Oximetry 100 O2 Sat by Pulse Oximetry 100 O2 Sat by Pulse Oximetry 92 O2 Sat by Pulse Oximetry 100 O2 Sat by Pulse Oximetry 100 O2 Sat by Pulse Oximetry 100 O2 Sat by Pulse Oximetry 100 O2 Sat by Pulse Oximetry 100 O2 Sat by Pulse Oximetry 100 O2 Sat by Pulse Oximetry 100 O2 Sat by Pulse Oximetry 99 O2 Sat by Pulse Oximetry 99 O2 Sat by Pulse Oximetry 98 O2 Sat by Pulse Oximetry 100 O2 Sat by Pulse Oximetry 97 O2 Sat by Pulse Oximetry 96 O2 Sat by Pulse Oximetry 95 O2 Sat by Pulse Oximetry 99 O2 Sat by Pulse Oximetry 99 O2 Sat by Pulse Oximetry 98 O2 Sat by Pulse Oximetry 96 MDM <Darlyn KorinaGarcíaNapoleon - Last Filed: 12/20/23 20:18> Differential Diagnosis Differential Diagnosis: CHF, Pneumonia and Pulmonary embolism Differential Diagnosis Comment:: covid-19,Rsv,Influenza A,B COURSE <Darlyn KorinaGarcíaNapoleon - Last Filed: 12/20/23 20:18> Treatment Treatment: 04:10 Iv access was initiated but unable to get larger peripheral line. 07:15Dr Woody was consulted and inserted a CVP line. 08:[address] Medina. CTA was unremarkable for pulmonary emboli. Changes consistent with bilateral pneumonia. Discussed with her attending, Dr. Ashraf, accepts admission for hypoxia, pneumonia, hypernatremia. <Felix Medina - Last Filed: 12/20/23 11:00> Treatment Treatment: 04:10 Iv access was initiated but unable to get larger peripheral line. 07:15Dr Woody was consulted and inserted a CVP line. 08:[address] Medina. CTA was unremarkable for pulmonary emboli. Changes consistent with bilateral pneumonia. Discussed with her attending, Dr. Ashraf, accepts admission for hypoxia, pneumonia, hyponatremia. ROR <Darlyn Vonnie - Last Filed: 12/20/23 20:18> Labs Reviewed 12/20/23 03:05 12/20/23 03:05 Laboratory: WBC 6.1 X10^3/uL (3.6-10.0) 12/20/23 03:05 RBC 4.83 X10^6/uL (3.5-5.4) 12/20/23 03:05 Hgb 11.9 g/dL (12.0-16.0) L 12/20/23 03:05 Hct 37.6 % (36.0-47.0) 12/20/23 03:05 MCV 77.8 fL (80.0-100.0) L 12/20/23 03:05 MCH 24.6 pg (27.0-34.0) L 12/20/23 03:05 MCHC 31.7 g/dL (33.0-35.0) L 12/20/23 03:05 RDW 18.1 % (11.6-16.5) H 12/20/23 03:05 Plt Count 257 X10^3/uL (150.0-450.0) 12/20/23 03:05 MPV 7.9 fL (7.4-11.0) 12/20/23 03:05 Neut % (Auto) 83.9 % (42.0-75.0) H 12/20/23 03:05 Lymph % (Auto) 11.2 % (21.0-51.0) L 12/20/23 03:05 [place] % (Auto) 4.0 % (0.0-13.0) 12/20/23 03:05 Eos % (Auto) 0.6 % (0.9-2.9) L 12/20/23 03:05 Baso % (Auto) 0.3 % (0.2-1.0) 12/20/23 03:05 Neut # (Auto) 5.1 x10^3/uL (2.2-4.8) H 12/20/23 03:05 Lymph # (Auto) 0.7 X10^3/uL (1.3-2.9) L 12/20/23 03:05 [place] # (Auto) 0.2 x10^3/uL (0.3-0.8) L 12/20/23 03:05 Eos # (Auto) 0.0 x10^3/uL (0.0-0.2) 12/20/23 03:05 Baso # (Auto) 0.0 X10^3/uL (0.0-0.1) 12/20/23 03:05 Absolute Nucleated RBC 0.0 /100WBC 12/20/23 03:05 Sample Site Rr 12/20/23 03:36 ABG pH 7.390 (7.35-7.45) 12/20/23 03:36 ABG pCO2 52.0 mmHg (35.0-45.0) H* 12/20/23 03:36 ABG pO2 50.0 mmHg (80.0-100.0) L 12/20/23 03:36 ABG HCO3 31.5 mmol/L (22-26) H* 12/20/23 03:36 ABG O2 Saturation 85.0 % (90-100) L 12/20/23 03:36 ABG Base Excess 5.3 mmol/L (-2.0-2.0) H 12/20/23 03:36 Ramo Test Pos 12/20/23 03:36 A-a Gradient 35.0 mmHg 12/20/23 03:36 FiO2 21.0 12/20/23 03:36 Blood Gas Comments Floyd well 12/20/23 03:36 Sodium 151 mmol/L (136-145) H* 12/20/23 03:05 Corrected Sodium 152 mmol/L (136-145) H 12/20/23 03:05 Potassium 3.6 mmol/L (3.5-5.1) 12/20/23 03:05 Chloride 109 mmol/L (98-107) H 12/20/23 03:05 Carbon Dioxide 29.2 mmol/L (21-32) 12/20/23 03:05 BUN 16 mg/dL (7-18) 12/20/23 03:05 Creatinine 0.82 mg/dL (0.55-1.02) 12/20/23 03:05 Est GFR (MDRD) Af Amer > 60 (>60) 12/20/23 03:05 Est GFR (MDRD) Non-Af > 60 (>60) 12/20/23 03:05 Glucose 160 mg/dL (65-99) H 12/20/23 03:05 POC Glucose (mg/dL) 152 mg/dL (65-99) H 12/20/23 03:06 Calcium 9.2 mg/dL (8.5-10.1) 12/20/23 03:05 Corrected Calcium TNP 12/20/23 03:05 Magnesium 1.8 mg/dL (2.0-2.9) L 12/20/23 03:05 Total Bilirubin 0.80 mg/dL (0.2-1.0) 12/20/23 03:05 AST 24 Units/L (15-37) 12/20/23 03:05 ALT 32 Units/L (12-78) 12/20/23 03:05 Alkaline Phosphatase 82 Units/L (46-116) 12/20/23 03:05 B-Natriuretic Peptide 22.6 pg/mL (0-79) 12/20/23 03:05 Total Protein 8.0 g/dL (6.4-8.2) 12/20/23 03:05 Albumin 3.9 g/dL (3.4-5.0) 12/20/23 03:05 Globulin 4.1 g/dL (2.5-4.5) 12/20/23 03:05 Albumin/Globulin Ratio 1.0 Ratio (1.1-2.1) L 12/20/23 03:05 SARS-CoV-2 (PCR) Negative (NEGATIVE) 12/20/23 03:40 Influenza Type A (PCR) Negative (NEGATIVE) 12/20/23 03:40 Influenza Type B (PCR) Negative (NEGATIVE) 12/20/23 03:40 RSV (PCR) Negative (NEGATIVE) 12/20/23 03:40 S. pyogenes (TEM-PCR) Not detected (NOT DETECT) 12/20/23 03:40 <Felix Medina - Last Filed: 12/20/23 11:00> Labs Reviewed Laboratory: WBC 6.1 X10^3/uL (3.6-10.0) 12/20/23 03:05 RBC 4.83 X10^6/uL (3.5-5.4) 12/20/23 03:05 Hgb 11.9 g/dL (12.0-16.0) L 12/20/23 03:05 Hct 37.6 % (36.0-47.0) 12/20/23 03:05 MCV 77.8 fL (80.0-100.0) L 12/20/23 03:05 MCH 24.6 pg (27.0-34.0) L 12/20/23 03:05 MCHC 31.7 g/dL (33.0-35.0) L 12/20/23 03:05 RDW 18.1 % (11.6-16.5) H 12/20/23 03:05 Plt Count 257 X10^3/uL (150.0-450.0) 12/20/23 03:05 MPV 7.9 fL (7.4-11.0) 12/20/23 03:05 Neut % (Auto) 83.9 % (42.0-75.0) H 12/20/23 03:05 Lymph % (Auto) 11.2 % (21.0-51.0) L 12/20/23 03:05 [place] % (Auto) 4.0 % (0.0-13.0) 12/20/23 03:05 Eos % (Auto) 0.6 % (0.9-2.9) L 12/20/23 03:05 Baso % (Auto) 0.3 % (0.2-1.0) 12/20/23 03:05 Neut # (Auto) 5.1 x10^3/uL (2.2-4.8) H 12/20/23 03:05 Lymph # (Auto) 0.7 X10^3/uL (1.3-2.9) L 12/20/23 03:05 [place] # (Auto) 0.2 x10^3/uL (0.3-0.8) L 12/20/23 03:05 Eos # (Auto) 0.0 x10^3/uL (0.0-0.2) 12/20/23 03:05 Baso # (Auto) 0.0 X10^3/uL (0.0-0.1) 12/20/23 03:05 Absolute Nucleated RBC 0.0 /100WBC 12/20/23 03:05 Sample Site Rr 12/20/23 03:36 ABG pH 7.390 (7.35-7.45) 12/20/23 03:36 ABG pCO2 52.0 mmHg (35.0-45.0) H* 12/20/23 03:36 ABG pO2 50.0 mmHg (80.0-100.0) L 12/20/23 03:36 ABG HCO3 31.5 mmol/L (22-26) H* 12/20/23 03:36 ABG O2 Saturation 85.0 % (90-100) L 12/20/23 03:36 ABG Base Excess 5.3 mmol/L (-2.0-2.0) H 12/20/23 03:36 Ramo Test Pos 12/20/23 03:36 A-a Gradient 35.0 mmHg 12/20/23 03:36 FiO2 21.0 12/20/23 03:36 Blood Gas Comments Floyd well sw 12/20/23 03:36 Sodium 151 mmol/L (136-145) H* 12/20/23 03:05 Corrected Sodium 152 mmol/L (136-145) H 12/20/23 03:05 Potassium 3.6 mmol/L (3.5-5.1) 12/20/23 03:05 Chloride 109 mmol/L (98-107) H 12/20/23 03:05 Carbon Dioxide 29.2 mmol/L (21-32) 12/20/23 03:05 BUN 16 mg/dL (7-18) 12/20/23 03:05 Creatinine 0.82 mg/dL (0.55-1.02) 12/20/23 03:05 Est GFR (MDRD) Af Amer > 60 (>60) 12/20/23 03:05 Est GFR (MDRD) Non-Af > 60 (>60) 12/20/23 03:05 Glucose 160 mg/dL (65-99) H 12/20/23 03:05 POC Glucose (mg/dL) 152 mg/dL (65-99) H 12/20/23 03:06 Calcium 9.2 mg/dL (8.5-10.1) 12/20/23 03:05 Corrected Calcium TNP 12/20/23 03:05 Magnesium 1.8 mg/dL (2.0-2.9) L 12/20/23 03:05 Total Bilirubin 0.80 mg/dL (0.2-1.0) 12/20/23 03:05 AST 24 Units/L (15-37) 12/20/23 03:05 ALT 32 Units/L (12-78) 12/20/23 03:05 Alkaline Phosphatase 82 Units/L (46-116) 12/20/23 03:05 B-Natriuretic Peptide 22.6 pg/mL (0-79) 12/20/23 03:05 Total Protein 8.0 g/dL (6.4-8.2) 12/20/23 03:05 Albumin 3.9 g/dL (3.4-5.0) 12/20/23 03:05 Globulin 4.1 g/dL (2.5-4.5) 12/20/23 03:05 Albumin/Globulin Ratio 1.0 Ratio (1.1-2.1) L 12/20/23 03:05 SARS-CoV-2 (PCR) Negative (NEGATIVE) 12/20/23 03:40 Influenza Type A (PCR) Negative (NEGATIVE) 12/20/23 03:40 Influenza Type B (PCR) Negative (NEGATIVE) 12/20/23 03:40 RSV (PCR) Negative (NEGATIVE) 12/20/23 03:40 S. pyogenes (TEM-PCR) Not detected (NOT DETECT) 12/20/23 03:40 Opioid <Darlyn Shankar - Last Filed: 12/20/23 20:18> Opioid Risk Tool Age (Kofi box if 16-45): No History of Preadolescent Sexual Abuse: No Total: 0 Total Score Risk Category: Low Risk Copyright: Loco KAM predicting aberrant behaviors <Felix Medina - Last Filed: 12/20/23 11:00> Opioid Risk Tool Total: 0 Total Score Risk Category: Low Risk Discharge Plan Diagnosis Discharge Problem: Hypoxemia, Pneumonia, Hypernatremia Discharge Plan Patient Disposition: ADMITTED INPATIENT Condition: Stable
[2023-12-20] MEDS ORDERED: NS 1,000 ML IV 1,000 ML ONE (03:52)
[2023-12-20] MEDS: NS 1,000 ML IV 1,000 ML IV SCH (03:56)
[2023-12-20 03:58] LABS: ABG BASE EXCESS 5.3 mmol/L (-2.0-2.0)
[2023-12-20 03:59] LABS: ABG ALLEN TEST POS; ABG HCO3 31.5 mmol/L (22-26)
--- NOTE | 2023-12-20 04:57 | RAD ---
EXAM:FRONTAL VIEW CHEST X-RAYHISTORY:Chest painCOMPARISON:12/19/2023FINDINGS:Subseg mental atelectasis is noted.No focal consolidation is seen.The heart size is within normal limits.The mediastinum is unremarkable.There is no evidence of pleural effusion or gross pneumothorax.The trachea is midline.IMPRESSION:No focal consolidation is seen.The heart size is normal.THIS IS AN ELECTRONICALLY VERIFIED FINAL REPORT12/20/2023 4:54 AM - Electronically signed by Lobo Hsu MD
[2023-12-20] MEDS: NS 100 ML IV 100 ML ONE (06:15)
[2023-12-20] MEDS: OMNIPAQUE 350 mg/mL 100 mL BTL 100 ML ONE (06:15)
[2023-12-20] MEDS ORDERED: VERSED ONE (06:44)
[2023-12-20] MEDS: VERSED IVP ONE (06:48)
[2023-12-20] MEDS ORDERED: XYLOCAINE 1 % (PLAIN) ONE (07:05)
[2023-12-20] MEDS: XYLOCAINE 1 % (PLAIN) SC ONE (07:08)
--- NOTE | 2023-12-20 08:23 | CT ---
EXAM:CTA, CHESTHISTORY:HYPOXIA;COMPARISON:CXR from 12/20/2023.TECHNIQUE:CTA chest protocol with axial images from the thoracic inlet to upper abdomen with IV contrast. Sagittal and coronal reformats and MIP images were created. Automated exposure control was utilized.FINDINGS:Limitations: Mild motion artifact.The visualized thyroid gland appears benign. Non atherosclerotic normal caliber thoracic aorta. The pulmonary artery trunk is normal in size measuring 26 mm transverse image 51 series 4. No central PE. Limited evaluation for peripheral PE particularly in the lower lobes given motion artifact. The heart is normal in size. No pericardial effusion. No pathologic adenopathy in the thorax. There is hepatic steatosis. Hyperdensity within the gallbladder may represent sludge, tiny calculi, or contrast excretion. No acute osseous abnormality. There is narrowing of the trachea with debris at the thoracic inlet image 25 series 5 with a luminal diameter measuring about 5 mm AP and 2 mm mediolateral. There is debris in the left distal mainstem bronchus image 51 series 5. Complete opacification with debris of the left lower lobe bronchus extending into the posterior and lateral segments. There are ground-glass opacities in the bilateral upper lobes and right middle lobe worst in the right upper lobe image 43 series 5. There is atelectasis in the posterior and lateral segments of the left lower lobe. No pleural effusion or pneumothorax. Gas in the left upper anterior chest wall about the left clavicle likely represents gas in venous structures often iatrogenic from venous access.IMPRESSION:No central PE. Limited evaluation for peripheral PE particularly in the lower lobes given motion artifact.There is debris in the trachea with severe narrowing of the thoracic inlet. There is complete opacification with debris of the left distal mainstem bronchus extending into the left lower lobar and segmental branches. There is a associated atelectasis in the posterior and lateral segments of the left lower lobe. Please correlate clinically for aspiration.Nonspecific ground-glass opacities in bilateral upper lobes and right middle lobe may represent atypical pneumonia. Recommend follow-up imaging to document resolution after appropriate treatment.THIS IS AN ELECTRONICALLY VERIFIED FINAL REPORT12/20/2023 8:20 AM - Electronically signed by Troy Reagan MD
[2023-12-20] MEDS ORDERED: D5 1/2 NS 1,000 ML 1,000 ML IV SCH (09:34)
[2023-12-20] MEDS ORDERED: CONSULT PHARMACY - POTASSIUM & MAGNESIUM XX SCH (09:34)
[2023-12-20 10:34] VITALS: BMI 20.5
[2023-12-20] MEDS: K-DUR TAB 20 MEQ PO ONE (11:16)
[2023-12-20] MEDS: D5 1/2 NS 1,000 ML 1,000 ML with MAGNESIUM SULFATE 50% INJ VIAL 1 G IV SCH (11:16)
[2023-12-20] MEDS: LEVAQUIN PREMIX IV 500 MG 500 MG/100 ML BAG IV SCH (11:16)
[2023-12-20] MEDS: DUONEB 0.5 MG/3 MG (3 mL) NEB SCH (13:26)
[2023-12-20] MEDS ORDERED: PULMICORT NEB TX 0.5 MG NEB ONE (19:14)
[2023-12-20] MEDS: PULMICORT NEB TX 0.5 MG NEB SCH (20:00)
[2023-12-21 06:17] LABS: BASOPHILS % (AUTO) 0.6 % (0.2-1.0); EOSINOPHILS # (AUTO) 0.1 x10^3/uL (0.0-0.2); EOSINOPHILS % (AUTO) 3.3 % (0.9-2.9); HEMATOCRIT 31.5 % (36.0-47.0); HEMOGLOBIN 10.3 g/dL (12.0-16.0); LYMPHOCYTES # (AUTO) 0.9 X10^3/uL (1.3-2.9); LYMPHOCYTES % (AUTO) 22.3 % (21.0-51.0); MEAN CORPUSCULAR HEMOGLOBIN 25.1 pg (27.0-34.0); MEAN CORPUSCULAR HGB CONC 32.6 g/dL (33.0-35.0); MEAN PLATELET VOLUME 7.7 fL (7.4-11.0); MONOCYTES # (AUTO) 0.4 x10^3/uL (0.3-0.8); MONOCYTES % (AUTO) 8.8 % (0.0-13.0); NEUTROPHILS # (AUTO) 2.7 x10^3/uL (2.2-4.8); PLATELET COUNT 210 X10^3/uL (150.0-450.0); RED BLOOD COUNT 4.09 X10^6/uL (3.5-5.4); RED CELL DISTRIBUTION WIDTH 17.8 % (11.6-16.5); WHITE BLOOD COUNT 4.1 X10^3/uL (3.6-10.0)
[2023-12-21 06:30] LABS: ALANINE AMINOTRANSFERASE 22 Units/L (12-78); ALBUMIN 3.2 g/dL (3.4-5.0); ALKALINE PHOSPHATASE 66 Units/L (46-116); ASPARTATE AMINO TRANSFERASE 17 Units/L (15-37); BLOOD UREA NITROGEN 5 mg/dL (7-18); CALCIUM 8.3 mg/dL (8.5-10.1); CARBON DIOXIDE 31.1 mmol/L (21-32); CHLORIDE 108 mmol/L (98-107); COR CA(FOR HYPOALB) 8.9 mg/dL (8.5-10.1); COR NA(FOR HYPERGLY) 149 mmol/L (136-145); CREATININE 0.61 mg/dL (0.55-1.02); GLUCOSE 168 mg/dL (65-99); POTASSIUM 3.7 mmol/L (3.5-5.1); SODIUM 147 mmol/L (136-145); TOTAL PROTEIN 6.7 g/dL (6.4-8.2); eGFR NON BLACK RACES > 60 (>60)
[2023-12-21] MEDS ORDERED: CONSULT PHARMACY - POTASSIUM & MAGNESIUM XX SCH (07:00)
[2023-12-21] MEDS: D5 1/2 NS 1,000 ML 1,000 ML IV SCH (08:19)
[2023-12-21] MEDS: DESYREL PO SCH (08:44)
[2023-12-21] MEDS: LOPRESSOR TAB 25 MG PO SCH (08:44)
[2023-12-21] MEDS: NORVASC TAB 5 MG PO SCH (08:44)
[2023-12-21] MEDS: PEPCID TAB 20 MG PO SCH (08:44)
[2023-12-21] MEDS: LANTUS SC SCH (08:45)
[2023-12-21] MEDS: PARLODEL PO SCH (14:24)
[2023-12-21] MEDS: SEROquel TAB 25 mg PO SCH (14:24)
[2023-12-21] MEDS: SNACK - Diabetic Appropriate PO SCH (20:08)
[2023-12-22 05:27] LABS: BASOPHILS % (AUTO) 0.6 % (0.2-1.0); EOSINOPHILS # (AUTO) 0.2 x10^3/uL (0.0-0.2); EOSINOPHILS % (AUTO) 4.3 % (0.9-2.9); HEMATOCRIT 34.3 % (36.0-47.0); LYMPHOCYTES # (AUTO) 1.2 X10^3/uL (1.3-2.9); LYMPHOCYTES % (AUTO) 25.4 % (21.0-51.0); MEAN CORPUSCULAR HGB CONC 32.2 g/dL (33.0-35.0); MEAN CORPUSCULAR VOLUME 77.5 fL (80.0-100.0); MEAN PLATELET VOLUME 7.9 fL (7.4-11.0); MONOCYTES # (AUTO) 0.4 x10^3/uL (0.3-0.8); MONOCYTES % (AUTO) 8.7 % (0.0-13.0); NEUTROPHILS # (AUTO) 2.8 x10^3/uL (2.2-4.8); PLATELET COUNT 251 X10^3/uL (150.0-450.0); RED BLOOD COUNT 4.42 X10^6/uL (3.5-5.4); RED CELL DISTRIBUTION WIDTH 18.1 % (11.6-16.5); WHITE BLOOD COUNT 4.6 X10^3/uL (3.6-10.0)
[2023-12-22 05:36] LABS: ALANINE AMINOTRANSFERASE 22 Units/L (12-78); ALBUMIN 3.2 g/dL (3.4-5.0); ALKALINE PHOSPHATASE 66 Units/L (46-116); ASPARTATE AMINO TRANSFERASE 15 Units/L (15-37); BLOOD UREA NITROGEN 3 mg/dL (7-18); CALCIUM 8.8 mg/dL (8.5-10.1); CARBON DIOXIDE 30.7 mmol/L (21-32); CHLORIDE 109 mmol/L (98-107); COR CA(FOR HYPOALB) 9.4 mg/dL (8.5-10.1); COR NA(FOR HYPERGLY) 148 mmol/L (136-145); CREATININE 0.71 mg/dL (0.55-1.02); GLUCOSE 137 mg/dL (65-99); POTASSIUM 3.7 mmol/L (3.5-5.1); SODIUM 147 mmol/L (136-145); TOTAL PROTEIN 6.9 g/dL (6.4-8.2); eGFR NON BLACK RACES > 60 (>60)
[2023-12-22] MEDS ORDERED: CONSULT PHARMACY - POTASSIUM & MAGNESIUM XX SCH (07:00)
[2023-12-22] MEDS: K-DUR TAB 20 MEQ PO SCH (08:37)
--- NOTE | 2023-12-22 08:48 | DR.H&P ---
H&P History & Physical for Day of: H&P Date: 12/20/23 Chief Complaint Chief Complaint: Patient is a 48-year-old female with past medical history of intellectual disability, diabetes mellitus, hypertension, presenting with cough and fatigue. Per mother, patient was not acting like herself and weak. She also reported that she had noticed her sweating often. Labs/imaging: WBC 6.1, hemoglobin 11.9, platelets 257, sodium 151, potassium 3.6, creatinine 0.82, glucose 160, ABG pH 7.39, pCO2 52, pCO2 50, HCO3 31, O2 sat 85% on room air. CT a of the chest was obtained that revealed No central PE. Nonspecific ground- glass opacities in bilateral upper lobes and right middle lobe may represent atypical pneumonia. Patient was admitted for bilateral pneumonia, likely due to aspiration. She was started on IV antibiotics Levaquin. Will restart home medications. She is requiring supplemental oxygen of 2 L. Scheduled bronchodilators. Continue to closely monitor and follow-up labs/imaging. Allergies Allergies Allergy/AdvReac Type Severity Reaction Status Date / Time No Known Drug Allergies Allergy Unknown Verified 12/19/23 09:01 Past Medical History Past Medical History: Anxiety, CVA, Diabetes, GERD and Hypertension Past Surgical History Surgical History: Neurosurgery and Lithotripsy Family History Family Medical History: Diabetes Mellitus and Hypertension Social History Does patient currently use any type of tobacco product: No Have you used tobacco products in the last 12 months: No Type of Tobacco Use: None Does any household member use tobacco: No Alcohol Use: None Drug Use: None Medications Home Medications: Home Medications Medication Instructions Recorded Confirmed Type insulin glargine 100 unit/mL 44 unit subcut Q12H 12/19/23 12/20/23 History subcutaneous solution (Lantus U-100 Insulin) Labs 12/22/23 05:00 12/22/23 05:00 Labs: Laboratory WBC 4.6 X10^3/uL (3.6-10.0) 12/22/23 05:00 RBC 4.42 X10^6/uL (3.5-5.4) 12/22/23 05:00 Hgb 11.0 g/dL (12.0-16.0) L 12/22/23 05:00 Hct 34.3 % (36.0-47.0) L 12/22/23 05:00 MCV 77.5 fL (80.0-100.0) L 12/22/23 05:00 MCH 25.0 pg (27.0-34.0) L 12/22/23 05:00 MCHC 32.2 g/dL (33.0-35.0) L 12/22/23 05:00 RDW 18.1 % (11.6-16.5) H 12/22/23 05:00 Plt Count 251 X10^3/uL (150.0-450.0) 12/22/23 05:00 MPV 7.9 fL (7.4-11.0) 12/22/23 05:00 Neut % (Auto) 61.0 % (42.0-75.0) 12/22/23 05:00 Lymph % (Auto) 25.4 % (21.0-51.0) 12/22/23 05:00 [place] % (Auto) 8.7 % (0.0-13.0) 12/22/23 05:00 Eos % (Auto) 4.3 % (0.9-2.9) H 12/22/23 05:00 Baso % (Auto) 0.6 % (0.2-1.0) 12/22/23 05:00 Neut # (Auto) 2.8 x10^3/uL (2.2-4.8) 12/22/23 05:00 Lymph # (Auto) 1.2 X10^3/uL (1.3-2.9) L 12/22/23 05:00 [place] # (Auto) 0.4 x10^3/uL (0.3-0.8) 12/22/23 05:00 Eos # (Auto) 0.2 x10^3/uL (0.0-0.2) 12/22/23 05:00 Baso # (Auto) 0.0 X10^3/uL (0.0-0.1) 12/22/23 05:00 Absolute Nucleated RBC 0.1 /100WBC 12/22/23 05:00 Sample Site Rr 12/20/23 03:36 ABG pH 7.390 (7.35-7.45) 12/20/23 03:36 ABG pCO2 52.0 mmHg (35.0-45.0) H* 12/20/23 03:36 ABG pO2 50.0 mmHg (80.0-100.0) L 12/20/23 03:36 ABG HCO3 31.5 mmol/L (22-26) H* 12/20/23 03:36 ABG O2 Saturation 85.0 % (90-100) L 12/20/23 03:36 ABG Base Excess 5.3 mmol/L (-2.0-2.0) H 12/20/23 03:36 Ramo Test Pos 12/20/23 03:36 A-a Gradient 35.0 mmHg 12/20/23 03:36 FiO2 21.0 12/20/23 03:36 Blood Gas Comments Floyd well sw 12/20/23 03:36 Sodium 147 mmol/L (136-145) H 12/22/23 05:00 Corrected Sodium 148 mmol/L (136-145) H 12/22/23 05:00 Potassium 3.7 mmol/L (3.5-5.1) 12/22/23 05:00 Chloride 109 mmol/L (98-107) H 12/22/23 05:00 Carbon Dioxide 30.7 mmol/L (21-32) 12/22/23 05:00 BUN 3 mg/dL (7-18) L 12/22/23 05:00 Creatinine 0.71 mg/dL (0.55-1.02) 12/22/23 05:00 Est GFR (MDRD) Af Amer > 60 (>60) 12/22/23 05:00 Est GFR (MDRD) Non-Af > 60 (>60) 12/22/23 05:00 Glucose 137 mg/dL (65-99) H 12/22/23 05:00 POC Glucose (mg/dL) 153 mg/dL (65-99) H 12/22/23 05:25 Calcium 8.8 mg/dL (8.5-10.1) 12/22/23 05:00 Corrected Calcium 9.4 mg/dL (8.5-10.1) 12/22/23 05:00 Magnesium 2.6 mg/dL (2.0-2.9) 12/21/23 05:53 Total Bilirubin 0.70 mg/dL (0.2-1.0) 12/22/23 05:00 AST 15 Units/L (15-37) 12/22/23 05:00 ALT 22 Units/L (12-78) 12/22/23 05:00 Alkaline Phosphatase 66 Units/L (46-116) 12/22/23 05:00 B-Natriuretic Peptide 22.6 pg/mL (0-79) 12/20/23 03:05 Total Protein 6.9 g/dL (6.4-8.2) 12/22/23 05:00 Albumin 3.2 g/dL (3.4-5.0) L 12/22/23 05:00 Globulin 3.7 g/dL (2.5-4.5) 12/22/23 05:00 Albumin/Globulin Ratio 0.9 Ratio (1.1-2.1) L 12/22/23 05:00 SARS-CoV-2 (PCR) Negative (NEGATIVE) 12/20/23 03:40 Influenza Type A (PCR) Negative (NEGATIVE) 12/20/23 03:40 Influenza Type B (PCR) Negative (NEGATIVE) 12/20/23 03:40 RSV (PCR) Negative (NEGATIVE) 12/20/23 03:40 S. pyogenes (TEM-PCR) Not detected (NOT DETECT) 12/20/23 03:40 Review of Systems Constitutional: Weakness Eyes: No Symptoms Reported ENT: No Symptoms Reported Respiratory: Cough Cardiovascular: No Symptoms Reported Gastrointestinal: No Symptoms Reported Genitourinary: No Symptoms Reported Musculoskeletal: No Symptoms Reported Skin: No Symptoms Reported Neurological: No Symptoms Reported Physical Exam Vital Signs: Vital Signs Temperature 97.9 F Pulse Rate [Left Radial] 106 Respiratory Rate 20 Blood Pressure [Left Arm] 171/93 O2 Sat by Pulse Oximetry 93 Oriented: Other (intellectual disability) Eyes: Normal Ear: Normal Nose: Normal Throat: Normal Respiratory: Rhonchi Throughout Cardiovascular: Normal : Normal Auscultation: Bowel Sounds: Normal Palpation: Normal Tenderness: Normal Skin: Normal Musculoskeletal: Normal Psychiatric: Normal Mood Description: Calm and Appropriate Affect: Normal Assessment/Plan (1) Pneumonia: Narrative Support Text: IV antibiotics Status: Acute (2) Hypernatremia: Narrative Support Text: D5 1/2NS@125ml/h. Status: Acute (3) Hypoxemia: Status: Acute (4) Type 2 diabetes mellitus: Status: Acute (5) Essential hypertension: Status: Acute Review H&P Reviewed: Yes Patient was examined?: Yes
--- NOTE | 2023-12-22 08:56 | PCM.PROG ---
Progress Note Progress Note for Day of Date of Exam: 12/21/23 Subjective Subjective: Patient is a 48-year-old female with past medical history of intellectual disability, diabetes mellitus, hypertension, admitted for bilateral pneumonia and hypernatremia. This morning she is resting in bed. No acute events overnight. Labs/imaging: WBC 4.1, hemoglobin 10.3, platelets 210, sodium 147, potassium 3.7, creatinine 0.61, glucose 168. Pt breathing appears to be the same as yesterday. She is still requiring 2L supplemental oxygen. Will continue with IV antibiotics Levaquin. Home medications have been resumed. Wean/titrate supplemental oxygen as tolerated. Scheduled bronchodilators. Continue to closely monitor and follow-up labs/imaging. Past Medical Family Social History Allergies: Allergies No Known Drug Allergies Allergy (Unknown, Verified 12/19/23 09:01) Onset Date: 07/02/2019 Review of Systems ROS changes noted: see HPI Vital Signs and I&O's Vital Signs: Vital Signs Temperature 97.9 F Pulse Rate [Left Radial] 106 Respiratory Rate 20 Blood Pressure [Left Arm] 171/93 O2 Sat by Pulse Oximetry 93 Intake and Output: Intake & Output 12/19/23 12/20/23 12/21/23 12/22/23 23:59 23:59 23:59 23:59 Intake Total 1545 / 1545 3265 / 3265 0 / 0 Balance 1545 / 1545 3265 / 3265 0 / 0 Physical Exam Oriented: Other (intellectual disability) Eyes: Normal Ear: Normal Nose: Normal Throat: Normal Respiratory: Rhonchi Cardiovascular: Normal : Normal Auscultation: Bowel Sounds: Normal Tenderness: Normal Skin: Normal Musculoskeletal: Normal Psychiatric: Normal Mood Description: Calm and Appropriate Affect: Normal Laboratory and Diagnostics 12/22/23 05:00 12/22/23 05:00 Labs: Laboratory WBC 4.6 X10^3/uL (3.6-10.0) 12/22/23 05:00 RBC 4.42 X10^6/uL (3.5-5.4) 12/22/23 05:00 Hgb 11.0 g/dL (12.0-16.0) L 12/22/23 05:00 Hct 34.3 % (36.0-47.0) L 12/22/23 05:00 MCV 77.5 fL (80.0-100.0) L 12/22/23 05:00 MCH 25.0 pg (27.0-34.0) L 12/22/23 05:00 MCHC 32.2 g/dL (33.0-35.0) L 12/22/23 05:00 RDW 18.1 % (11.6-16.5) H 12/22/23 05:00 Plt Count 251 X10^3/uL (150.0-450.0) 12/22/23 05:00 MPV 7.9 fL (7.4-11.0) 12/22/23 05:00 Neut % (Auto) 61.0 % (42.0-75.0) 12/22/23 05:00 Lymph % (Auto) 25.4 % (21.0-51.0) 12/22/23 05:00 [place] % (Auto) 8.7 % (0.0-13.0) 12/22/23 05:00 Eos % (Auto) 4.3 % (0.9-2.9) H 12/22/23 05:00 Baso % (Auto) 0.6 % (0.2-1.0) 12/22/23 05:00 Neut # (Auto) 2.8 x10^3/uL (2.2-4.8) 12/22/23 05:00 Lymph # (Auto) 1.2 X10^3/uL (1.3-2.9) L 12/22/23 05:00 [place] # (Auto) 0.4 x10^3/uL (0.3-0.8) 12/22/23 05:00 Eos # (Auto) 0.2 x10^3/uL (0.0-0.2) 12/22/23 05:00 Baso # (Auto) 0.0 X10^3/uL (0.0-0.1) 12/22/23 05:00 Absolute Nucleated RBC 0.1 /100WBC 12/22/23 05:00 Sample Site Rr 12/20/23 03:36 ABG pH 7.390 (7.35-7.45) 12/20/23 03:36 ABG pCO2 52.0 mmHg (35.0-45.0) H* 12/20/23 03:36 ABG pO2 50.0 mmHg (80.0-100.0) L 12/20/23 03:36 ABG HCO3 31.5 mmol/L (22-26) H* 12/20/23 03:36 ABG O2 Saturation 85.0 % (90-100) L 12/20/23 03:36 ABG Base Excess 5.3 mmol/L (-2.0-2.0) H 12/20/23 03:36 Ramo Test Pos 12/20/23 03:36 A-a Gradient 35.0 mmHg 12/20/23 03:36 FiO2 21.0 12/20/23 03:36 Blood Gas Comments Floyd well sw 12/20/23 03:36 Sodium 147 mmol/L (136-145) H 12/22/23 05:00 Corrected Sodium 148 mmol/L (136-145) H 12/22/23 05:00 Potassium 3.7 mmol/L (3.5-5.1) 12/22/23 05:00 Chloride 109 mmol/L (98-107) H 12/22/23 05:00 Carbon Dioxide 30.7 mmol/L (21-32) 12/22/23 05:00 BUN 3 mg/dL (7-18) L 12/22/23 05:00 Creatinine 0.71 mg/dL (0.55-1.02) 12/22/23 05:00 Est GFR (MDRD) Af Amer > 60 (>60) 12/22/23 05:00 Est GFR (MDRD) Non-Af > 60 (>60) 12/22/23 05:00 Glucose 137 mg/dL (65-99) H 12/22/23 05:00 POC Glucose (mg/dL) 153 mg/dL (65-99) H 12/22/23 05:25 Calcium 8.8 mg/dL (8.5-10.1) 12/22/23 05:00 Corrected Calcium 9.4 mg/dL (8.5-10.1) 12/22/23 05:00 Magnesium 2.6 mg/dL (2.0-2.9) 12/21/23 05:53 Total Bilirubin 0.70 mg/dL (0.2-1.0) 12/22/23 05:00 AST 15 Units/L (15-37) 12/22/23 05:00 ALT 22 Units/L (12-78) 12/22/23 05:00 Alkaline Phosphatase 66 Units/L (46-116) 12/22/23 05:00 B-Natriuretic Peptide 22.6 pg/mL (0-79) 12/20/23 03:05 Total Protein 6.9 g/dL (6.4-8.2) 12/22/23 05:00 Albumin 3.2 g/dL (3.4-5.0) L 12/22/23 05:00 Globulin 3.7 g/dL (2.5-4.5) 12/22/23 05:00 Albumin/Globulin Ratio 0.9 Ratio (1.1-2.1) L 12/22/23 05:00 SARS-CoV-2 (PCR) Negative (NEGATIVE) 12/20/23 03:40 Influenza Type A (PCR) Negative (NEGATIVE) 12/20/23 03:40 Influenza Type B (PCR) Negative (NEGATIVE) 12/20/23 03:40 RSV (PCR) Negative (NEGATIVE) 12/20/23 03:40 S. pyogenes (TEM-PCR) Not detected (NOT DETECT) 12/20/23 03:40 Plan (1) Pneumonia: Status: Acute Narrative Support Text: IV levaquin (2) Hypernatremia: Status: Acute Narrative Support Text: IVF (3) Hypoxemia: Status: Acute (4) Type 2 diabetes mellitus: Status: Acute (5) Essential hypertension: Status: Acute
[2023-12-22] MEDS ORDERED: MILK OF MAGNESIA PO PRN (09:18)
--- NOTE | 2023-12-22 11:08 | PCM.PROG ---
Progress Note Progress Note for Day of Date of Exam: 12/22/23 Subjective Subjective: Patient seen at bedside, no acute events overnight. She is currently on 3L NC. She does have some mild non-productive cough. She has a past medical history of intellectual disability, diabetes mellitus, hypertension, admitted for bilateral pneumonia and hypernatremia. Labs/imaging reviewed - Na: 147 K:3.7 Hgb:11 - AIT respiratory panel negative - CT-chest reviewed Plan: Wean O2 as tolerated. Continue bronchodilators and Levaquin. Patient will need home O2 set up as per CM. Continue hydration. Continue home medications. Monitor AM labs/imaging. Past Medical Family Social History Allergies: Allergies No Known Drug Allergies Allergy (Unknown, Verified 12/19/23 09:01) Onset Date: 07/02/2019 Vital Signs and I&O's Vital Signs: Vital Signs Temperature 97.1 F Temperature 97.9 F Pulse Rate [Left Radial] 88 Pulse Rate [Left Radial] 106 Pulse Rate 109 Respiratory Rate 24 Respiratory Rate 20 Blood Pressure [Left Arm] 145/89 Blood Pressure [Left Arm] 171/93 O2 Sat by Pulse Oximetry 99 O2 Sat by Pulse Oximetry 100 O2 Sat by Pulse Oximetry 93 Intake and Output: Intake & Output 12/19/23 12/20/23 12/21/23 12/22/23 23:59 23:59 23:59 23:59 Intake Total 1545 / 1545 3265 / 3265 0 / 0 Balance 1545 / 1545 3265 / 3265 0 / 0 Physical Exam Oriented: Other (intellectual disability) Eyes: Normal Ear: Normal Nose: Normal Throat: Normal Respiratory: Rhonchi Cardiovascular: Normal Auscultation: Bowel Sounds: Normal Tenderness: Normal Skin: Normal Musculoskeletal: Normal Psychiatric: Normal Mood Description: Calm and Appropriate Affect: Normal Laboratory and Diagnostics 12/22/23 05:00 12/22/23 05:00 Labs: Laboratory WBC 4.6 X10^3/uL (3.6-10.0) 12/22/23 05:00 RBC 4.42 X10^6/uL (3.5-5.4) 12/22/23 05:00 Hgb 11.0 g/dL (12.0-16.0) L 12/22/23 05:00 Hct 34.3 % (36.0-47.0) L 12/22/23 05:00 MCV 77.5 fL (80.0-100.0) L 12/22/23 05:00 MCH 25.0 pg (27.0-34.0) L 12/22/23 05:00 MCHC 32.2 g/dL (33.0-35.0) L 12/22/23 05:00 RDW 18.1 % (11.6-16.5) H 12/22/23 05:00 Plt Count 251 X10^3/uL (150.0-450.0) 12/22/23 05:00 MPV 7.9 fL (7.4-11.0) 12/22/23 05:00 Neut % (Auto) 61.0 % (42.0-75.0) 12/22/23 05:00 Lymph % (Auto) 25.4 % (21.0-51.0) 12/22/23 05:00 [place] % (Auto) 8.7 % (0.0-13.0) 12/22/23 05:00 Eos % (Auto) 4.3 % (0.9-2.9) H 12/22/23 05:00 Baso % (Auto) 0.6 % (0.2-1.0) 12/22/23 05:00 Neut # (Auto) 2.8 x10^3/uL (2.2-4.8) 12/22/23 05:00 Lymph # (Auto) 1.2 X10^3/uL (1.3-2.9) L 12/22/23 05:00 [place] # (Auto) 0.4 x10^3/uL (0.3-0.8) 12/22/23 05:00 Eos # (Auto) 0.2 x10^3/uL (0.0-0.2) 12/22/23 05:00 Baso # (Auto) 0.0 X10^3/uL (0.0-0.1) 12/22/23 05:00 Absolute Nucleated RBC 0.1 /100WBC 12/22/23 05:00 Sample Site Rr 12/20/23 03:36 ABG pH 7.390 (7.35-7.45) 12/20/23 03:36 ABG pCO2 52.0 mmHg (35.0-45.0) H* 12/20/23 03:36 ABG pO2 50.0 mmHg (80.0-100.0) L 12/20/23 03:36 ABG HCO3 31.5 mmol/L (22-26) H* 12/20/23 03:36 ABG O2 Saturation 85.0 % (90-100) L 12/20/23 03:36 ABG Base Excess 5.3 mmol/L (-2.0-2.0) H 12/20/23 03:36 Ramo Test Pos 12/20/23 03:36 A-a Gradient 35.0 mmHg 12/20/23 03:36 FiO2 21.0 12/20/23 03:36 Blood Gas Comments Floyd well sw 12/20/23 03:36 Sodium 147 mmol/L (136-145) H 12/22/23 05:00 Corrected Sodium 148 mmol/L (136-145) H 12/22/23 05:00 Potassium 3.7 mmol/L (3.5-5.1) 12/22/23 05:00 Chloride 109 mmol/L (98-107) H 12/22/23 05:00 Carbon Dioxide 30.7 mmol/L (21-32) 12/22/23 05:00 BUN 3 mg/dL (7-18) L 12/22/23 05:00 Creatinine 0.71 mg/dL (0.55-1.02) 12/22/23 05:00 Est GFR (MDRD) Af Amer > 60 (>60) 12/22/23 05:00 Est GFR (MDRD) Non-Af > 60 (>60) 12/22/23 05:00 Glucose 137 mg/dL (65-99) H 12/22/23 05:00 POC Glucose (mg/dL) 153 mg/dL (65-99) H 12/22/23 05:25 Calcium 8.8 mg/dL (8.5-10.1) 12/22/23 05:00 Corrected Calcium 9.4 mg/dL (8.5-10.1) 12/22/23 05:00 Magnesium 2.6 mg/dL (2.0-2.9) 12/21/23 05:53 Total Bilirubin 0.70 mg/dL (0.2-1.0) 12/22/23 05:00 AST 15 Units/L (15-37) 12/22/23 05:00 ALT 22 Units/L (12-78) 12/22/23 05:00 Alkaline Phosphatase 66 Units/L (46-116) 12/22/23 05:00 B-Natriuretic Peptide 22.6 pg/mL (0-79) 12/20/23 03:05 Total Protein 6.9 g/dL (6.4-8.2) 12/22/23 05:00 Albumin 3.2 g/dL (3.4-5.0) L 12/22/23 05:00 Globulin 3.7 g/dL (2.5-4.5) 12/22/23 05:00 Albumin/Globulin Ratio 0.9 Ratio (1.1-2.1) L 12/22/23 05:00 SARS-CoV-2 (PCR) Negative (NEGATIVE) 12/20/23 03:40 Influenza Type A (PCR) Negative (NEGATIVE) 12/20/23 03:40 Influenza Type B (PCR) Negative (NEGATIVE) 12/20/23 03:40 RSV (PCR) Negative (NEGATIVE) 12/20/23 03:40 S. pyogenes (TEM-PCR) Not detected (NOT DETECT) 12/20/23 03:40 Plan (1) Pneumonia: Status: Acute (2) Hypernatremia: Status: Acute (3) Hypoxemia: Status: Acute (4) Type 2 diabetes mellitus: Status: Acute (5) Essential hypertension: Status: Acute
[2023-12-22] MEDS: COLACE CAP 100 MG PO SCH (20:10)
--- NOTE | 2023-12-23 01:03 | RAD ---
EXAM:CHEST, 1 VIEWHISTORY:pnuemonia, hypernatremia, hypoxia;COMPARISON:12/20/2023FINDINGS:Th e trachea is midline. The cardiac silhouette is unremarkable. Left lower lobe consolidation or atelectasis.. The bony thorax is unremarkable.IMPRESSION:Left lower lobe consolidation and/or atelectasis.THIS IS AN ELECTRONICALLY VERIFIED FINAL REPORT12/23/2023 12:59 AM - Electronically signed by Frandy Acuna MD
[2023-12-23 04:52] LABS: ALANINE AMINOTRANSFERASE 19 Units/L (12-78); ALBUMIN 2.8 g/dL (3.4-5.0); ALKALINE PHOSPHATASE 65 Units/L (46-116); ASPARTATE AMINO TRANSFERASE 15 Units/L (15-37); BLOOD UREA NITROGEN 3 mg/dL (7-18); CALCIUM 8.6 mg/dL (8.5-10.1); CARBON DIOXIDE 28.4 mmol/L (21-32); CHLORIDE 110 mmol/L (98-107); COR CA(FOR HYPOALB) 9.6 mg/dL (8.5-10.1); COR NA(FOR HYPERGLY) 147 mmol/L (136-145); CREATININE 0.67 mg/dL (0.55-1.02); GLUCOSE 137 mg/dL (65-99); POTASSIUM 3.7 mmol/L (3.5-5.1); SODIUM 146 mmol/L (136-145); TOTAL PROTEIN 6.1 g/dL (6.4-8.2); eGFR NON BLACK RACES > 60 (>60)
[2023-12-23 05:16] LABS: BASOPHILS % (AUTO) 0.3 % (0.2-1.0); EOSINOPHILS # (AUTO) 0.1 x10^3/uL (0.0-0.2); EOSINOPHILS % (AUTO) 3.8 % (0.9-2.9); HEMATOCRIT 29.8 % (36.0-47.0); HEMOGLOBIN 9.8 g/dL (12.0-16.0); LYMPHOCYTES # (AUTO) 0.7 X10^3/uL (1.3-2.9); LYMPHOCYTES % (AUTO) 17.8 % (21.0-51.0); MEAN CORPUSCULAR HEMOGLOBIN 25.2 pg (27.0-34.0); MEAN CORPUSCULAR HGB CONC 32.8 g/dL (33.0-35.0); MEAN CORPUSCULAR VOLUME 76.9 fL (80.0-100.0); MEAN PLATELET VOLUME 7.6 fL (7.4-11.0); MONOCYTES # (AUTO) 0.3 x10^3/uL (0.3-0.8); MONOCYTES % (AUTO) 8.1 % (0.0-13.0); NEUTROPHILS # (AUTO) 2.6 x10^3/uL (2.2-4.8); PLATELET COUNT 188 X10^3/uL (150.0-450.0); RED BLOOD COUNT 3.87 X10^6/uL (3.5-5.4); RED CELL DISTRIBUTION WIDTH 17.8 % (11.6-16.5); WHITE BLOOD COUNT 3.7 X10^3/uL (3.6-10.0)
--- NOTE | 2023-12-23 05:53 | RAD ---
EXAM: CHEST, 1 VIEW HISTORY: PNEUMONIA F/U; HX: HTN, DM, CVA COMPARISON: 12/22/2023 FINDINGS: The trachea is midline. The cardiac silhouette is unremarkable. There is atelectasis or consolidati on within the retrocardiac region of the left lower lobe.. The bony thorax is unremarkable. IMPRESSION: Left lower lobe atelectasis and/or consolidation. THIS IS AN ELECTRONICALLY VERIFIED FINAL REPORT 12/23/2023 5:50 AM - Electronically signed by Frandy Acuna MD
[2023-12-23] MEDS ORDERED: CONSULT PHARMACY - POTASSIUM & MAGNESIUM XX SCH (08:00)
[2023-12-23] MEDS: K-DUR TAB 20 MEQ PO SCH (08:27)
[2023-12-23] MEDS: MAG-OX TAB PO SCH (08:27)
--- NOTE | 2023-12-23 11:03 | PCM.PROG ---
Progress Note Progress Note for Day of Date of Exam: 12/23/23 Subjective Subjective: Patient seen at bedside, no acute events overnight. She is currently on 2L NC. She does have some mild non-productive cough. She has a past medical history of intellectual disability, diabetes mellitus, hypertension, admitted for bilateral pneumonia and hypernatremia. Patient's mother would like the seroquel dose to be scheduled the same way she was taking it at home. Labs/imaging reviewed - Na: 146 K:3.7 Hg.8 - AIT respiratory panel negative - CXR: LLL atelectasis/consolidation Plan: Wean O2 as tolerated. Continue bronchodilators and Levaquin. Patient will need home O2 set up as per CM. Continue hydration. Continue home medications. Change seroquel dose timings. Monitor AM labs/imaging. Past Medical Family Social History Allergies: Allergies No Known Drug Allergies Allergy (Unknown, Verified 12/19/23 09:01) Onset Date: 07/02/2019 Vital Signs and I&O's Vital Signs: Vital Signs Temperature 97.9 F Pulse Rate [Left Radial] 78 Respiratory Rate 20 Blood Pressure [Right Arm] 151/72 O2 Sat by Pulse Oximetry 100 Intake and Output: Intake & Output 12/20/23 12/21/23 12/22/23 12/23/23 23:59 23:59 23:59 23:59 Intake Total 1545 / 1545 3265 / 3265 2368 / 2368 50 / 50 Balance 1545 / 1545 3265 / 3265 2368 / 2368 50 / 50 Physical Exam Oriented: Other (intellectual disability) Eyes: Normal Ear: Normal Nose: Normal Throat: Normal Respiratory: Rhonchi Cardiovascular: Normal Auscultation: Bowel Sounds: Normal Tenderness: Normal Skin: Normal Musculoskeletal: Normal Psychiatric: Normal Mood Description: Calm and Appropriate Affect: Normal Speech Pattern: Delayed Laboratory and Diagnostics 12/23/23 05:06 12/23/23 04:26 Labs: Laboratory WBC 3.7 X10^3/uL (3.6-10.0) 12/23/23 05:06 RBC 3.87 X10^6/uL (3.5-5.4) 12/23/23 05:06 Hgb 9.8 g/dL (12.0-16.0) L 12/23/23 05:06 Hct 29.8 % (36.0-47.0) L 12/23/23 05:06 MCV 76.9 fL (80.0-100.0) L 12/23/23 05:06 MCH 25.2 pg (27.0-34.0) L 12/23/23 05:06 MCHC 32.8 g/dL (33.0-35.0) L 12/23/23 05:06 RDW 17.8 % (11.6-16.5) H 12/23/23 05:06 Plt Count 188 X10^3/uL (150.0-450.0) 12/23/23 05:06 MPV 7.6 fL (7.4-11.0) 12/23/23 05:06 Neut % (Auto) 70.0 % (42.0-75.0) 12/23/23 05:06 Lymph % (Auto) 17.8 % (21.0-51.0) L 12/23/23 05:06 [place] % (Auto) 8.1 % (0.0-13.0) 12/23/23 05:06 Eos % (Auto) 3.8 % (0.9-2.9) H 12/23/23 05:06 Baso % (Auto) 0.3 % (0.2-1.0) 12/23/23 05:06 Neut # (Auto) 2.6 x10^3/uL (2.2-4.8) 12/23/23 05:06 Lymph # (Auto) 0.7 X10^3/uL (1.3-2.9) L 12/23/23 05:06 [place] # (Auto) 0.3 x10^3/uL (0.3-0.8) 12/23/23 05:06 Eos # (Auto) 0.1 x10^3/uL (0.0-0.2) 12/23/23 05:06 Baso # (Auto) 0.0 X10^3/uL (0.0-0.1) 12/23/23 05:06 Absolute Nucleated RBC 0.1 /100WBC 12/23/23 05:06 Sample Site Rr 12/20/23 03:36 ABG pH 7.390 (7.35-7.45) 12/20/23 03:36 ABG pCO2 52.0 mmHg (35.0-45.0) H* 12/20/23 03:36 ABG pO2 50.0 mmHg (80.0-100.0) L 12/20/23 03:36 ABG HCO3 31.5 mmol/L (22-26) H* 12/20/23 03:36 ABG O2 Saturation 85.0 % (90-100) L 12/20/23 03:36 ABG Base Excess 5.3 mmol/L (-2.0-2.0) H 12/20/23 03:36 Ramo Test Pos 12/20/23 03:36 A-a Gradient 35.0 mmHg 12/20/23 03:36 FiO2 21.0 12/20/23 03:36 Blood Gas Comments [place] well sw 12/20/23 03:36 Sodium 146 mmol/L (136-145) H 12/23/23 04:26 Corrected Sodium 147 mmol/L (136-145) H 12/23/23 04:26 Potassium 3.7 mmol/L (3.5-5.1) 12/23/23 04:26 Chloride 110 mmol/L (98-107) H 12/23/23 04:26 Carbon Dioxide 28.4 mmol/L (21-32) 12/23/23 04:26 BUN 3 mg/dL (7-18) L 12/23/23 04:26 Creatinine 0.67 mg/dL (0.55-1.02) 12/23/23 04:26 Est GFR (MDRD) Af Amer > 60 (>60) 12/23/23 04:26 Est GFR (MDRD) Non-Af > 60 (>60) 12/23/23 04:26 Glucose 137 mg/dL (65-99) H 12/23/23 04:26 POC Glucose (mg/dL) 144 mg/dL (65-99) H 12/23/23 05:32 Calcium 8.6 mg/dL (8.5-10.1) 12/23/23 04:26 Corrected Calcium 9.6 mg/dL (8.5-10.1) 12/23/23 04:26 Magnesium 1.8 mg/dL (2.0-2.9) L 12/23/23 04:26 Total Bilirubin 0.50 mg/dL (0.2-1.0) 12/23/23 04:26 AST 15 Units/L (15-37) 12/23/23 04:26 ALT 19 Units/L (12-78) 12/23/23 04:26 Alkaline Phosphatase 65 Units/L (46-116) 12/23/23 04:26 B-Natriuretic Peptide 22.6 pg/mL (0-79) 12/20/23 03:05 Total Protein 6.1 g/dL (6.4-8.2) L 12/23/23 04:26 Albumin 2.8 g/dL (3.4-5.0) L 12/23/23 04:26 Globulin 3.3 g/dL (2.5-4.5) 12/23/23 04:26 Albumin/Globulin Ratio 0.8 Ratio (1.1-2.1) L 12/23/23 04:26 SARS-CoV-2 (PCR) Negative (NEGATIVE) 12/20/23 03:40 Influenza Type A (PCR) Negative (NEGATIVE) 12/20/23 03:40 Influenza Type B (PCR) Negative (NEGATIVE) 12/20/23 03:40 RSV (PCR) Negative (NEGATIVE) 12/20/23 03:40 S. pyogenes (TEM-PCR) Not detected (NOT DETECT) 12/20/23 03:40 Plan (1) Pneumonia: Status: Acute (2) Hypokalemia: Status: Acute (3) Hypernatremia: Status: Acute (4) Hypoxemia: Status: Acute (5) Type 2 diabetes mellitus: Status: Acute (6) Essential hypertension: Status: Acute (7) Insomnia: Status: Acute
[2023-12-23] MEDS: SEROquel TAB 25 mg PO SCH ×2 (14:02→15:10)
[2023-12-24 05:18] LABS: BASOPHILS % (AUTO) 0.5 % (0.2-1.0); EOSINOPHILS # (AUTO) 0.2 x10^3/uL (0.0-0.2); EOSINOPHILS % (AUTO) 4.7 % (0.9-2.9); HEMOGLOBIN 10.2 g/dL (12.0-16.0); LYMPHOCYTES # (AUTO) 0.6 X10^3/uL (1.3-2.9); LYMPHOCYTES % (AUTO) 14.7 % (21.0-51.0); MEAN CORPUSCULAR HEMOGLOBIN 25.3 pg (27.0-34.0); MEAN CORPUSCULAR VOLUME 76.7 fL (80.0-100.0); MEAN PLATELET VOLUME 7.8 fL (7.4-11.0); MONOCYTES # (AUTO) 0.3 x10^3/uL (0.3-0.8); MONOCYTES % (AUTO) 7.6 % (0.0-13.0); NEUTROPHILS # (AUTO) 2.9 x10^3/uL (2.2-4.8); NEUTROPHILS % (AUTO) 72.5 % (42.0-75.0); PLATELET COUNT 209 X10^3/uL (150.0-450.0); RED BLOOD COUNT 4.04 X10^6/uL (3.5-5.4)
[2023-12-24 05:36] LABS: ALANINE AMINOTRANSFERASE 24 Units/L (12-78); ALBUMIN 3.1 g/dL (3.4-5.0); ALKALINE PHOSPHATASE 77 Units/L (46-116); ASPARTATE AMINO TRANSFERASE 17 Units/L (15-37); BLOOD UREA NITROGEN 3 mg/dL (7-18); CALCIUM 8.8 mg/dL (8.5-10.1); CARBON DIOXIDE 31.5 mmol/L (21-32); CHLORIDE 109 mmol/L (98-107); COR CA(FOR HYPOALB) 9.5 mg/dL (8.5-10.1); COR NA(FOR HYPERGLY) 148 mmol/L (136-145); CREATININE 0.66 mg/dL (0.55-1.02); GLUCOSE 117 mg/dL (65-99); MAGNESIUM 2.1 mg/dL (2.0-2.9); POTASSIUM 3.7 mmol/L (3.5-5.1); SODIUM 148 mmol/L (136-145); TOTAL PROTEIN 6.6 g/dL (6.4-8.2); eGFR NON BLACK RACES > 60 (>60)
--- NOTE | 2023-12-24 06:23 | RAD ---
EXAM:Portable chestHISTORY:Follow-up pneumoniaCOMPARISON:12/23/2023FINDINGS:H eart size is upper limits normal. Nicole are normal. No congestive heart failure is noted. Right lung and left upper lung maddox remain clear. There is improvement in the retrocardiac density noted on the prior examination but with some residual density remaining. This could represent rapidly improving pneumonia or improving subsegmental atelectasis or both. Continued follow-up until complete resolution is recommended. No pleural effusions are identified. Bony thorax is unremarkable.IMPRESSION:Improving retrocardiac density left lower lobe which could represent rapidly improving pneumonia, improving atelectasis or bothTHIS IS AN ELECTRONICALLY VERIFIED FINAL REPORT12/24/2023 6:20 AM - Electronically signed by Chip Downs MD
[2023-12-24] MEDS ORDERED: CONSULT PHARMACY - POTASSIUM & MAGNESIUM XX SCH (07:00)
[2023-12-24] MEDS: K-DUR TAB 20 MEQ PO SCH (10:02)
--- NOTE | 2023-12-24 20:56 | PCM.PROG ---
Progress Note Progress Note for Day of Date of Exam: 12/24/23 Subjective Subjective: Patient resting in bed this morning. No acute events overnight. She continues to be on 2L NC. She does have some mild non-productive cough. She has a past medical history of intellectual disability, diabetes mellitus, hypertension, admitted for bilateral pneumonia and hypernatremia. Labs/imaging reviewed - Na: 148 K:3.7 Hgb:10.2 - AIT respiratory panel negative - CXR: Improving retrocardiac density left lower lobe which could represent rapidly improving pneumonia, improving atelectasis or both. Plan: Wean O2 as tolerated. Continue bronchodilators and Levaquin. Patient will need home O2 set up as per CM. Continue hydration. Continue home medications. Otherwise, continue with current treatment plan. Monitor AM labs/imaging. Past Medical Family Social History Allergies: Allergies No Known Drug Allergies Allergy (Unknown, Verified 12/19/23 09:01) Onset Date: 07/02/2019 Review of Systems ROS changes noted: see HPI Vital Signs and I&O's Vital Signs: Vital Signs Temperature 98.2 F Pulse Rate [Left Radial] 76 Respiratory Rate 20 Blood Pressure [Right Arm] 155/85 O2 Sat by Pulse Oximetry 98 Intake and Output: Intake & Output 12/21/23 12/22/23 12/23/23 12/24/23 23:59 23:59 23:59 23:59 Intake Total 3265 / 3265 2368 / 2368 2268 / 2268 50 / 50 Balance 3265 / 3265 2368 / 2368 2268 / 2268 50 / 50 Physical Exam Oriented: Other (intellectual disability) Eyes: Normal Ear: Normal Nose: Normal Throat: Normal Respiratory: Rhonchi Cardiovascular: Normal : Normal Auscultation: Bowel Sounds: Normal Tenderness: Normal Skin: Normal Musculoskeletal: Normal Psychiatric: Normal Mood Description: Calm and Appropriate Affect: Normal Speech Pattern: Delayed Laboratory and Diagnostics 12/24/23 04:41 12/24/23 04:41 Labs: Laboratory WBC 4.0 X10^3/uL (3.6-10.0) 12/24/23 04:41 RBC 4.04 X10^6/uL (3.5-5.4) 12/24/23 04:41 Hgb 10.2 g/dL (12.0-16.0) L 12/24/23 04:41 Hct 31.0 % (36.0-47.0) L 12/24/23 04:41 MCV 76.7 fL (80.0-100.0) L 12/24/23 04:41 MCH 25.3 pg (27.0-34.0) L 12/24/23 04:41 MCHC 33.0 g/dL (33.0-35.0) 12/24/23 04:41 RDW 18.0 % (11.6-16.5) H 12/24/23 04:41 Plt Count 209 X10^3/uL (150.0-450.0) 12/24/23 04:41 MPV 7.8 fL (7.4-11.0) 12/24/23 04:41 Neut % (Auto) 72.5 % (42.0-75.0) 12/24/23 04:41 Lymph % (Auto) 14.7 % (21.0-51.0) L 12/24/23 04:41 [place] % (Auto) 7.6 % (0.0-13.0) 12/24/23 04:41 Eos % (Auto) 4.7 % (0.9-2.9) H 12/24/23 04:41 Baso % (Auto) 0.5 % (0.2-1.0) 12/24/23 04:41 Neut # (Auto) 2.9 x10^3/uL (2.2-4.8) 12/24/23 04:41 Lymph # (Auto) 0.6 X10^3/uL (1.3-2.9) L 12/24/23 04:41 [place] # (Auto) 0.3 x10^3/uL (0.3-0.8) 12/24/23 04:41 Eos # (Auto) 0.2 x10^3/uL (0.0-0.2) 12/24/23 04:41 Baso # (Auto) 0.0 X10^3/uL (0.0-0.1) 12/24/23 04:41 Absolute Nucleated RBC 0.0 /100WBC 12/24/23 04:41 Sample Site Rr 12/20/23 03:36 ABG pH 7.390 (7.35-7.45) 12/20/23 03:36 ABG pCO2 52.0 mmHg (35.0-45.0) H* 12/20/23 03:36 ABG pO2 50.0 mmHg (80.0-100.0) L 12/20/23 03:36 ABG HCO3 31.5 mmol/L (22-26) H* 12/20/23 03:36 ABG O2 Saturation 85.0 % (90-100) L 12/20/23 03:36 ABG Base Excess 5.3 mmol/L (-2.0-2.0) H 12/20/23 03:36 Ramo Test Pos 12/20/23 03:36 A-a Gradient 35.0 mmHg 12/20/23 03:36 FiO2 21.0 12/20/23 03:36 Blood Gas Comments Floyd well sw 12/20/23 03:36 Sodium 148 mmol/L (136-145) H 12/24/23 04:41 Corrected Sodium 148 mmol/L (136-145) H 12/24/23 04:41 Potassium 3.7 mmol/L (3.5-5.1) 12/24/23 04:41 Chloride 109 mmol/L (98-107) H 12/24/23 04:41 Carbon Dioxide 31.5 mmol/L (21-32) 12/24/23 04:41 BUN 3 mg/dL (7-18) L 12/24/23 04:41 Creatinine 0.66 mg/dL (0.55-1.02) 12/24/23 04:41 Est GFR (MDRD) Af Amer > 60 (>60) 12/24/23 04:41 Est GFR (MDRD) Non-Af > 60 (>60) 12/24/23 04:41 Glucose 117 mg/dL (65-99) H 12/24/23 04:41 POC Glucose (mg/dL) 110 mg/dL (65-99) H 12/24/23 05:05 Calcium 8.8 mg/dL (8.5-10.1) 12/24/23 04:41 Corrected Calcium 9.5 mg/dL (8.5-10.1) 12/24/23 04:41 Magnesium 2.1 mg/dL (2.0-2.9) 12/24/23 04:41 Total Bilirubin 0.50 mg/dL (0.2-1.0) 12/24/23 04:41 AST 17 Units/L (15-37) 12/24/23 04:41 ALT 24 Units/L (12-78) 12/24/23 04:41 Alkaline Phosphatase 77 Units/L (46-116) 12/24/23 04:41 B-Natriuretic Peptide 22.6 pg/mL (0-79) 12/20/23 03:05 Total Protein 6.6 g/dL (6.4-8.2) 12/24/23 04:41 Albumin 3.1 g/dL (3.4-5.0) L 12/24/23 04:41 Globulin 3.5 g/dL (2.5-4.5) 12/24/23 04:41 Albumin/Globulin Ratio 0.9 Ratio (1.1-2.1) L 12/24/23 04:41 SARS-CoV-2 (PCR) Negative (NEGATIVE) 12/20/23 03:40 Influenza Type A (PCR) Negative (NEGATIVE) 12/20/23 03:40 Influenza Type B (PCR) Negative (NEGATIVE) 12/20/23 03:40 RSV (PCR) Negative (NEGATIVE) 12/20/23 03:40 Resp Viral Panel (PCR) See scanned report 12/20/23 12:26 S. pyogenes (TEM-PCR) Not detected (NOT DETECT) 12/20/23 03:40 Plan (1) Pneumonia: Status: Acute (2) Hypokalemia: Status: Acute (3) Hypernatremia: Status: Acute (4) Hypoxemia: Status: Acute (5) Type 2 diabetes mellitus: Status: Acute (6) Essential hypertension: Status: Acute (7) Insomnia: Status: Acute
[2023-12-25 05:33] VITALS: RESP 20
[2023-12-25 06:22] LABS: BASOPHILS % (AUTO) 0.5 % (0.2-1.0); EOSINOPHILS # (AUTO) 0.2 x10^3/uL (0.0-0.2); EOSINOPHILS % (AUTO) 4.8 % (0.9-2.9); HEMATOCRIT 29.7 % (36.0-47.0); HEMOGLOBIN 9.8 g/dL (12.0-16.0); LYMPHOCYTES # (AUTO) 0.9 X10^3/uL (1.3-2.9); MEAN CORPUSCULAR HEMOGLOBIN 25.3 pg (27.0-34.0); MEAN CORPUSCULAR VOLUME 76.7 fL (80.0-100.0); MEAN PLATELET VOLUME 8.2 fL (7.4-11.0); MONOCYTES # (AUTO) 0.3 x10^3/uL (0.3-0.8); NEUTROPHILS # (AUTO) 2.2 x10^3/uL (2.2-4.8); NEUTROPHILS % (AUTO) 61.7 % (42.0-75.0); PLATELET COUNT 206 X10^3/uL (150.0-450.0); RED BLOOD COUNT 3.87 X10^6/uL (3.5-5.4); RED CELL DISTRIBUTION WIDTH 17.9 % (11.6-16.5); WHITE BLOOD COUNT 3.6 X10^3/uL (3.6-10.0)
[2023-12-25 06:37] LABS: ALANINE AMINOTRANSFERASE 24 Units/L (12-78); ALKALINE PHOSPHATASE 82 Units/L (46-116); ASPARTATE AMINO TRANSFERASE 15 Units/L (15-37); BLOOD UREA NITROGEN 4 mg/dL (7-18); CALCIUM 8.8 mg/dL (8.5-10.1); CARBON DIOXIDE 28.7 mmol/L (21-32); CHLORIDE 108 mmol/L (98-107); COR CA(FOR HYPOALB) 9.6 mg/dL (8.5-10.1); COR NA(FOR HYPERGLY) 147 mmol/L (136-145); CREATININE 0.64 mg/dL (0.55-1.02); GLUCOSE 132 mg/dL (65-99); POTASSIUM 3.4 mmol/L (3.5-5.1); SODIUM 146 mmol/L (136-145); TOTAL PROTEIN 6.5 g/dL (6.4-8.2); eGFR NON BLACK RACES > 60 (>60)
[2023-12-25] MEDS ORDERED: CONSULT PHARMACY - POTASSIUM & MAGNESIUM XX SCH (07:00)
[2023-12-25] MEDS: K-DUR TAB 20 MEQ PO SCH (08:57)
[2023-12-25 09:15] VITALS: O2SAT 100
[2023-12-25 10:27] VITALS: BP 163/74; PULSE 75; TEMP 97.6
--- NOTE | 2023-12-26 12:00 | W.DIS.FURT ---
Summary of Discharge Discharge Summary of Date Date of Exam: 12/25/23 Admission Date Date of Admission: 12/20/23 Admission Diagnosis Patient Problems (Updated 12/23/23 @ 11:03 by Ayah Kimble) Hypoxemia (Acute) R09.02 Pneumonia (Acute) J18.9 Hypernatremia (Acute) E87.0 Hospital Course: Patient is a 48-year-old female with past medical history of intellectual disability, diabetes mellitus, hypertension, admitted for bilateral pneumonia and hypernatremia. Her hospital/treatment course included: Supplemental oxygen, IV antibiotics Levaquin. Home medications were resumed. Scheduled bronchodilators. Pt responded well to treatments. She did not require home oxygen on discharge. Rx levaquin x5 days and Lantus decreased to 10 units daily. Pt discharged in stable condition. Instructed to follow up with pcp in 1 week. Vital Signs: Vital Signs (72 hours) 12/23/23 12:00 12/23/23 16:00 12/23/23 18:30 Temperature 97.7 F 97.3 F L Pulse Rate Pulse Rate [Left Radial] 77 75 Respiratory Rate 24 22 Blood Pressure [Right Arm] 166/76 139/84 O2 Sat by Pulse Oximetry 100 100 Oxygen Delivery Method Nasal Cannula Nasal Cannula Nasal Cannula Oxygen Flow Rate 2 FIO2% 28 12/23/23 19:00 12/23/23 19:53 12/23/23 20:50 Temperature 98.4 F Pulse Rate Pulse Rate [Left Radial] 94 H Respiratory Rate 20 Blood Pressure [Right Arm] 145/66 O2 Sat by Pulse Oximetry 96 Oxygen Delivery Method Nasal Cannula Room Air Oxygen Flow Rate 3 FIO2% 12/23/23 20:50 12/23/23 23:47 12/24/23 04:00 Temperature 97.7 F 98.2 F Pulse Rate 84 Pulse Rate [Left Radial] 84 76 Respiratory Rate 20 20 Blood Pressure [Right Arm] 143/88 155/85 O2 Sat by Pulse Oximetry 95 99 98 Oxygen Delivery Method Nasal Cannula Nasal Cannula Oxygen Flow Rate FIO2% 12/24/23 07:00 12/24/23 09:08 12/24/23 09:09 Temperature Pulse Rate 90 Pulse Rate [Left Radial] Respiratory Rate Blood Pressure [Right Arm] O2 Sat by Pulse Oximetry 97 Oxygen Delivery Method Room Air Room Air Oxygen Flow Rate FIO2% 12/24/23 08:00 12/24/23 12:00 12/24/23 16:00 Temperature 97.9 F 98.2 F 99.5 F Pulse Rate Pulse Rate [Left Radial] 94 H 70 74 Respiratory Rate 20 20 18 Blood Pressure [Right Arm] 164/86 140/72 132/75 O2 Sat by Pulse Oximetry 95 100 100 Oxygen Delivery Method Nasal Cannula Nasal Cannula Nasal Cannula Oxygen Flow Rate FIO2% 12/24/23 19:57 12/24/23 19:00 12/24/23 21:00 Temperature 98.0 F Pulse Rate Pulse Rate [Left Radial] 87 Respiratory Rate 21 Blood Pressure [Right Arm] 135/77 O2 Sat by Pulse Oximetry 97 Oxygen Delivery Method Room Air Room Air Room Air Oxygen Flow Rate FIO2% 12/25/23 00:27 12/25/23 05:32 12/25/23 09:13 Temperature 97.8 F 98.4 F Pulse Rate Pulse Rate [Left Radial] 71 77 Respiratory Rate 18 20 Blood Pressure [Right Arm] 125/70 162/78 O2 Sat by Pulse Oximetry 99 99 Oxygen Delivery Method Room Air Room Air Room Air Oxygen Flow Rate FIO2% 21 12/25/23 09:14 12/25/23 08:00 12/25/23 07:00 Temperature 97.6 F Pulse Rate 90 Pulse Rate [Left Radial] 75 Respiratory Rate 20 Blood Pressure [Right Arm] 163/74 O2 Sat by Pulse Oximetry 100 97 Oxygen Delivery Method Room Air Room Air Oxygen Flow Rate FIO2% Labs: Laboratory Last Values WBC 3.6 X10^3/uL (3.6-10.0) 12/25/23 05:16 RBC 3.87 X10^6/uL (3.5-5.4) 12/25/23 05:16 Hgb 9.8 g/dL (12.0-16.0) L 12/25/23 05:16 Hct 29.7 % (36.0-47.0) L 12/25/23 05:16 MCV 76.7 fL (80.0-100.0) L 12/25/23 05:16 MCH 25.3 pg (27.0-34.0) L 12/25/23 05:16 MCHC 33.0 g/dL (33.0-35.0) 12/25/23 05:16 RDW 17.9 % (11.6-16.5) H 12/25/23 05:16 Plt Count 206 X10^3/uL (150.0-450.0) 12/25/23 05:16 MPV 8.2 fL (7.4-11.0) 12/25/23 05:16 Neut % (Auto) 61.7 % (42.0-75.0) 12/25/23 05:16 Lymph % (Auto) 25.0 % (21.0-51.0) 12/25/23 05:16 [place] % (Auto) 8.0 % (0.0-13.0) 12/25/23 05:16 Eos % (Auto) 4.8 % (0.9-2.9) H 12/25/23 05:16 Baso % (Auto) 0.5 % (0.2-1.0) 12/25/23 05:16 Neut # (Auto) 2.2 x10^3/uL (2.2-4.8) 12/25/23 05:16 Lymph # (Auto) 0.9 X10^3/uL (1.3-2.9) L 12/25/23 05:16 [place] # (Auto) 0.3 x10^3/uL (0.3-0.8) 12/25/23 05:16 Eos # (Auto) 0.2 x10^3/uL (0.0-0.2) 12/25/23 05:16 Baso # (Auto) 0.0 X10^3/uL (0.0-0.1) 12/25/23 05:16 Absolute Nucleated RBC 0.1 /100WBC 12/25/23 05:16 Sample Site Rr 12/20/23 03:36 ABG pH 7.390 (7.35-7.45) 12/20/23 03:36 ABG pCO2 52.0 mmHg (35.0-45.0) H* 12/20/23 03:36 ABG pO2 50.0 mmHg (80.0-100.0) L 12/20/23 03:36 ABG HCO3 31.5 mmol/L (22-26) H* 12/20/23 03:36 ABG O2 Saturation 85.0 % (90-100) L 12/20/23 03:36 ABG Base Excess 5.3 mmol/L (-2.0-2.0) H 12/20/23 03:36 Ramo Test Pos 12/20/23 03:36 A-a Gradient 35.0 mmHg 12/20/23 03:36 FiO2 21.0 12/20/23 03:36 Blood Gas Comments Floyd well sw 12/20/23 03:36 Sodium 146 mmol/L (136-145) H 12/25/23 05:16 Corrected Sodium 147 mmol/L (136-145) H 12/25/23 05:16 Potassium 3.4 mmol/L (3.5-5.1) L 12/25/23 05:16 Chloride 108 mmol/L (98-107) H 12/25/23 05:16 Carbon Dioxide 28.7 mmol/L (21-32) 12/25/23 05:16 BUN 4 mg/dL (7-18) L 12/25/23 05:16 Creatinine 0.64 mg/dL (0.55-1.02) 12/25/23 05:16 Est GFR (MDRD) Af Amer > 60 (>60) 12/25/23 05:16 Est GFR (MDRD) Non-Af > 60 (>60) 12/25/23 05:16 Glucose 132 mg/dL (65-99) H 12/25/23 05:16 POC Glucose (mg/dL) 135 mg/dL (65-99) H 12/25/23 11:11 Calcium 8.8 mg/dL (8.5-10.1) 12/25/23 05:16 Corrected Calcium 9.6 mg/dL (8.5-10.1) 12/25/23 05:16 Magnesium 2.1 mg/dL (2.0-2.9) 12/24/23 04:41 Total Bilirubin 0.30 mg/dL (0.2-1.0) 12/25/23 05:16 AST 15 Units/L (15-37) 12/25/23 05:16 ALT 24 Units/L (12-78) 12/25/23 05:16 Alkaline Phosphatase 82 Units/L (46-116) 12/25/23 05:16 B-Natriuretic Peptide 22.6 pg/mL (0-79) 12/20/23 03:05 Total Protein 6.5 g/dL (6.4-8.2) 12/25/23 05:16 Albumin 3.0 g/dL (3.4-5.0) L 12/25/23 05:16 Globulin 3.5 g/dL (2.5-4.5) 12/25/23 05:16 Albumin/Globulin Ratio 0.9 Ratio (1.1-2.1) L 12/25/23 05:16 SARS-CoV-2 (PCR) Negative (NEGATIVE) 12/20/23 03:40 Influenza Type A (PCR) Negative (NEGATIVE) 12/20/23 03:40 Influenza Type B (PCR) Negative (NEGATIVE) 12/20/23 03:40 RSV (PCR) Negative (NEGATIVE) 12/20/23 03:40 Resp Viral Panel (PCR) See scanned report 12/20/23 12:26 S. pyogenes (TEM-PCR) Not detected (NOT DETECT) 12/20/23 03:40 Reason For Visit: PNEUMONIA, HYPERNATREMIA, HYPOXIA Discharge Diagnosis All Active Problems (Updated 12/23/23 @ 11:03 by Ayah Kimble) Hypokalemia (Acute) Diabetes mellitus, labile (Acute) Hypernatremia (Acute) Near syncope (Acute) Pneumonia (Acute) Hypoxemia (Acute) Pneumonia (Acute) Hypernatremia (Acute) Presence of externally removable percutaneous endoscopic gastrostomy (PEG) tube (Acute) GERD (gastroesophageal reflux disease) (Acute) Insomnia (Acute) Benign essential tremor (Acute) Type 2 diabetes mellitus (Acute) Subarachnoid hemorrhage (Acute) Essential hypertension (Acute) Dermatitis (Acute) Plan of Treatment: Continue with present treatment and follow up plan. Pt is to keep follow up appointment as instructed and take medications as ordered. Discharge Medications Discharge Medications: No Known Drug Allergies Allergy (Unknown, Verified 12/19/23 09:01) New Prescriptions insulin glargine 100 unit/mL subcutaneous solution (Lantus U-100 Insulin) 10 unit (0.1 mL) subcut DAILY #0 mL 12/25/23 [Rx] ipratropium 0.5 mg-albuterol 3 mg (2.5 mg base)/3 mL nebulization soln 3 ml inhalation Q4-6H PRN wheezing #90 mL 12/25/23 [Rx] levofloxacin 250 mg/10 mL oral solution 500 mg (20 mL) PO QDAY 5 days #100 mL 12/25/23 [Rx] Discharge Plan Discharge Plan Hospital Course: Patient is a 48-year-old female with past medical history of intellectual disability, diabetes mellitus, hypertension, admitted for bilateral pneumonia and hypernatremia. Her hospital/treatment course included: Supplemental oxygen, IV antibiotics Levaquin. Home medications were resumed. Scheduled bronchodilators. Pt responded well to treatments. She did not require home oxygen on discharge. Rx levaquin x5 days and Lantus decreased to 10 units daily. Pt discharged in stable condition. Instructed to follow up with pcp in 1 week. Patient Disposition: HOME HEALTH SERVICE Condition: Stable Health Concerns: Post Hospitalization: new medications and changes needed to prevent readmission or further decline. Pt educated and given instructions on all concerns. Care Plan Goals: Problem: Respiratory Complications Goal: Improved Uncomplicated Respiratory Status Instructions: Follow provided instructions. Follow up with primary physician as directed. Contact primary care physician or report to the closest Emergency Room if condition worsens. Plan of Treatment: Continue with present treatment and follow up plan. Pt is to keep follow up appointment as instructed and take medications as ordered. Prescriptions: New levofloxacin 250 mg/10 mL Solution 500 mg PO QDAY 5 Days Qty: 100 0RF Continued quetiapine 50 mg tablet 50 mg PO TID 30 Days Qty: 90 2RF metoprolol tartrate 25 mg tablet 25 mg PO BID 30 Days Qty: 60 2RF famotidine 20 mg tablet 20 mg PO BID 30 Days Qty: 60 2RF bromocriptine 5 mg capsule 5 mg PO TID 30 Days Qty: 90 2RF Rx Instructions: must administer with a meal/food trazodone 50 mg tablet 50 mg PO QDAY 30 Days Qty: 30 2RF amlodipine [Norvasc] 5 mg tablet 5 mg PO QDAY 30 Days Qty: 30 2RF doxycycline hyclate 100 mg capsule 100 mg PO BID 8 Days Qty: 16 0RF Rx Instructions: take 1 by mouth twice daily for 8 days. prescribed 12/19/23 ipratropium-albuterol 0.5 mg-3 mg(2.5 mg base)/3 mL solution for nebulization 3 ml inhalation Q4-6H PRN (Reason: wheezing) Qty: 90 0RF Changed insulin glargine [Lantus U-100 Insulin] 100 unit/mL solution 10 unit subcut DAILY Qty: 0 0RF Discontinued (DME) FreeStyle Stew 14 Day Sensor Kit See Rx Instructions .Route Qty: 1 0RF Rx Instructions: As directed (DME) FreeStyle Stew 14 Day [place] Misc See Rx Instructions .Route Qty: 1 5RF Rx Instructions: As directed Follow ups/Referrals Follow ups/Referrals: [facility] [Other] (Nebulizer machine) SAURAV COMER [STAFF PHYSICIAN] - Emil Ashraf [Primary Care Provider] - 01/02/24 2:40 pm Instructions Instructions: How to Use a Nebulizer, Adult, Aspiration Pneumonia, Adult, Community-Acquired Pneumonia, Adult, [id number] Stand Alone Forms: Post Hospital Follow Up Care
== END 2023-12-25 11:50 | disposition home health service (06) | DRG 194 ==
LOC: MED/SURG 02:39 → ER 02:39 → OBSVTOIN 08:39 → MED/SURG 09:28
PROVIDERS: ADMIT Family Medicine; ATTEND Family Medicine
DX: R06.02 Shortness of breath; R26.89 Other abnormalities of gait and mobility; K21.9 Gastro-esophageal reflux disease without esophagitis; R09.02 Hypoxemia; E11.65 Type 2 diabetes mellitus with hyperglycemia; E87.0 Hyperosmolality and hypernatremia; E83.42 Hypomagnesemia; R53.83 Other fatigue; F41.8 Other specified anxiety disorders; J18.8 Other pneumonia, unspecified organism; Z20.822 Contact with and (suspected) exposure to COVID-19; F79 Unspecified intellectual disabilities; I10 Essential (primary) hypertension; I87.2 Venous insufficiency (chronic) (peripheral); E87.6 Hypokalemia

== ENCOUNTER 2023-12-27 09:05 | Observation (INO) ==
--- NOTE | 2023-12-27 09:18 | DR.SOBA ---
HPI Time Seen Time Seen by Provider: 12/27/23 09:26 Complaints Chief Complaint Doctors Comments: 48-year-old female, cared for at home, sent in for evaluation via EMS. Per family member, patient was having increasing shortness of breath this a.m., with episodes diaphoresis. Patient seen here last week with similar episodes, treated for pneumonia. Was discharged then, admitted 2 days later to the hospital for pneumonia. Recently discharged on Levaquin. Has had a slight cough, no vomiting or diarrhea, no known fevers or chills. Mother gave a breathing treatment prior to arrival. Patient with special needs, poor historian. Denies any pain or nausea.. Reviewed Nurses Notes Reviewed: Yes Source History Provided: Patient, Parent and EMS PMH PMH Past Medical History: Anxiety, CVA, Diabetes, GERD and Hypertension Past Surgical History: Yes Surgical History: Neurosurgery and Lithotripsy Family History Family Medical History: Diabetes Mellitus and Hypertension Social History Does patient currently use any type of tobacco product: No Alcohol Use: None Do you use any recreational Drugs:: No ROS Review of Systems Constitutional: Weakness Eyes: No Symptoms Reported ENTM: No Symptoms Reported Respiratoy: Moist Cough Cardiovascular: No Symptoms Reported Gastrointestinal/Abdominal: No Symptoms Reported Genitourinary: No Symptoms Reported Neurological: Weakness Musculoskeletal: No Symptoms Reported Integumentary: No Symptoms Reported Hematologic/Lymphatic: No Symptoms Reported All Other Systems: Reviewed and Negative PE Vital Signs Vitals: Vital Signs Temperature 98.0 F Pulse Rate 100 Pulse Rate 114 Pulse Rate 109 Pulse Rate 112 Pulse Rate 95 Pulse Rate 101 Pulse Rate 99 Pulse Rate 99 Pulse Rate 105 Pulse Rate 110 Pulse Rate 125 Pulse Rate 128 Pulse Rate 115 Pulse Rate 129 Pulse Rate 128 Pulse Rate 132 Pulse Rate 130 Respiratory Rate 15 Respiratory Rate 23 Respiratory Rate 37 Respiratory Rate 33 Respiratory Rate 14 Respiratory Rate 19 Respiratory Rate 17 Respiratory Rate 16 Respiratory Rate 15 Respiratory Rate 14 Respiratory Rate 16 Respiratory Rate 12 Respiratory Rate 28 Respiratory Rate 11 Respiratory Rate 14 Respiratory Rate 12 Respiratory Rate 12 Blood Pressure 205/98 Blood Pressure 136/90 O2 Sat by Pulse Oximetry 99 O2 Sat by Pulse Oximetry 99 O2 Sat by Pulse Oximetry 100 O2 Sat by Pulse Oximetry 100 O2 Sat by Pulse Oximetry 100 O2 Sat by Pulse Oximetry 100 O2 Sat by Pulse Oximetry 100 O2 Sat by Pulse Oximetry 100 O2 Sat by Pulse Oximetry 100 O2 Sat by Pulse Oximetry 100 O2 Sat by Pulse Oximetry 100 O2 Sat by Pulse Oximetry 97 O2 Sat by Pulse Oximetry 99 O2 Sat by Pulse Oximetry 99 O2 Sat by Pulse Oximetry 99 General General Appearance: Alert and In No Apparent Distress Eyes Eye exam: PERRL and EOMI ENT ENT Exam: Normal Exam Neck Neck Exam: Normal Inspection Respiratory Respiratory Exam: Normal Lung Sounds Bilat; negative Accessory Muscle Use or Respiratory Distress Cardiovascular Cardiovascular Exam: Regular Rate, Normal Rhythm and Normal Heart Sounds Abdominal Exam Abdominal Exam: Normal Bowel Sounds and Soft; negative Tenderness Extremities Extremities Exam: negative Edema Neurologic Neurological Exam: Alert and CN II-XII Intact; negative Motor Sensory Deficit Skin Skin Exam: Diaphoresis COURSE Treatment Treatment: 48-year-old female brought in with shortness of breath, diaphoresis this a.m. Recently discharged from the hospital for pneumonia. W/u initiated. Pt given IV fluids. CXR - with haziness of left base, c/w persistent pneumonia. Pt given IV Rocephin. Lactic acid acceptable. Total white count normal but has 18% bands. Recommend readmission. Discussed with Dr Ashraf, accepts the admission. [facility] Labs Reviewed Laboratory Results Reviewed?: Yes 12/27/23 10:10 12/27/23 10:10 Laboratory: WBC 8.8 X10^3/uL (3.6-10.0) 12/27/23 10:10 RBC 4.16 X10^6/uL (3.5-5.4) 12/27/23 10:10 Hgb 10.5 g/dL (12.0-16.0) L 12/27/23 10:10 Hct 32.2 % (36.0-47.0) L 12/27/23 10:10 MCV 77.4 fL (80.0-100.0) L 12/27/23 10:10 MCH 25.3 pg (27.0-34.0) L 12/27/23 10:10 MCHC 32.7 g/dL (33.0-35.0) L 12/27/23 10:10 RDW 18.7 % (11.6-16.5) H 12/27/23 10:10 Plt Count 239 X10^3/uL (150.0-450.0) 12/27/23 10:10 Plt Count Comment Adequate (ADEQUATE) 12/27/23 10:10 MPV 7.8 fL (7.4-11.0) 12/27/23 10:10 Neut % (Auto) 90.1 % (42.0-75.0) H 12/27/23 10:10 Lymph % (Auto) 6.2 % (21.0-51.0) L 12/27/23 10:10 [place] % (Auto) 3.0 % (0.0-13.0) 12/27/23 10:10 Eos % (Auto) 0.5 % (0.9-2.9) L 12/27/23 10:10 Baso % (Auto) 0.2 % (0.2-1.0) 12/27/23 10:10 Neut # (Auto) 7.9 x10^3/uL (2.2-4.8) H 12/27/23 10:10 Lymph # (Auto) 0.5 X10^3/uL (1.3-2.9) L 12/27/23 10:10 [place] # (Auto) 0.3 x10^3/uL (0.3-0.8) 12/27/23 10:10 Eos # (Auto) 0.0 x10^3/uL (0.0-0.2) 12/27/23 10:10 Baso # (Auto) 0.0 X10^3/uL (0.0-0.1) 12/27/23 10:10 Absolute Nucleated RBC 0.1 /100WBC 12/27/23 10:10 Total Counted 100 12/27/23 10:10 Neutrophils % (Manual) 74 % (39-76) 12/27/23 10:10 Band Neutrophils % 18 % (0-10) H 12/27/23 10:10 Lymphocytes % (Manual) 7 % (13-43) L 12/27/23 10:10 Monocytes % (Manual) 1 % (4-9) L 12/27/23 10:10 Plt Morphology Comment Normal (NORMAL) 12/27/23 10:10 RBC Morphology Abnormal (NORMAL) A 12/27/23 10:10 Hypochromasia 1+ A 12/27/23 10:10 Anisocytosis Slight A 12/27/23 10:10 Microcytosis Slight A 12/27/23 10:10 Sodium 143 mmol/L (136-145) 12/27/23 10:10 Corrected Sodium 145 mmol/L (136-145) 12/27/23 10:10 Potassium 3.6 mmol/L (3.5-5.1) 12/27/23 10:10 Chloride 105 mmol/L (98-107) 12/27/23 10:10 Carbon Dioxide 25.1 mmol/L (21-32) 12/27/23 10:10 BUN 13 mg/dL (7-18) 12/27/23 10:10 Creatinine 0.87 mg/dL (0.55-1.02) 12/27/23 10:10 Est GFR (MDRD) Af Amer > 60 (>60) 12/27/23 10:10 Est GFR (MDRD) Non-Af > 60 (>60) 12/27/23 10:10 Glucose 172 mg/dL (65-99) H 12/27/23 10:10 Lactic Acid 0.9 mmol/L (0.4-2.0) 12/27/23 10:10 Calcium 9.1 mg/dL (8.5-10.1) 12/27/23 10:10 Corrected Calcium TNP 12/27/23 10:10 Total Bilirubin 0.30 mg/dL (0.2-1.0) 12/27/23 10:10 AST 18 Units/L (15-37) 12/27/23 10:10 ALT 22 Units/L (12-78) 12/27/23 10:10 Alkaline Phosphatase 102 Units/L (46-116) 12/27/23 10:10 Troponin I High Sens 38.1 ng/L (4.0-60.0) 12/27/23 10:10 Total Protein 7.3 g/dL (6.4-8.2) 12/27/23 10:10 Albumin 3.4 g/dL (3.4-5.0) 12/27/23 10:10 Globulin 3.9 g/dL (2.5-4.5) 12/27/23 10:10 Albumin/Globulin Ratio 0.9 Ratio (1.1-2.1) L 12/27/23 10:10 SARS-CoV-2 (PCR) Negative (NEGATIVE) 12/27/23 09:54 Influenza Type A (PCR) Negative (NEGATIVE) 12/27/23 09:54 Influenza Type B (PCR) Negative (NEGATIVE) 12/27/23 09:54 RSV (PCR) Negative (NEGATIVE) 12/27/23 09:54 Labs acceptable. Has bandemia present. XRAY XRAY Interpreted by: Both X-ray Results: EXAM: CHEST, 1 VIEW HISTORY: Shortness of Breath; COMPARISON: CXR 12/24/2023. TECHNIQUE: AP view of the chest FINDINGS: Patient is mildly rotated. The cardiac and mediastinal contours are normal in size. Similar-appearing left medial base opacity relative to 12/24/2023 study but improved from 12/23/2023. No definite pleural effusion or pneumothorax. IMPRESSION: Similar-appearing left base opacity that may represent atelectasis or infiltrate. Recommend follow-up to resolution. THIS IS AN ELECTRONICALLY VERIFIED FINAL REPORT 12/27/2023 10:42 AM - Electronically signed by Troy Reagan MD EKG Rate: 126 [place]: Normal Rhythm: ST Hypertrophy: LAE ST: Nonsp Opioid Opioid Risk Tool Age (Kofi box if 16-45): No History of Preadolescent Sexual Abuse: No Total: 0 Total Score Risk Category: Low Risk Copyright: [facility] predicting aberrant behaviors Discharge Plan Diagnosis Discharge Problem: Pneumonia involving left lung Discharge Plan Patient Disposition: 09 ADMITTED INPATIENT Condition: Stable Prescriptions: No Action quetiapine 50 mg tablet 50 mg PO TID 30 Days Qty: 90 2RF metoprolol tartrate 25 mg tablet 25 mg PO BID 30 Days Qty: 60 2RF famotidine 20 mg tablet 20 mg PO BID 30 Days Qty: 60 2RF bromocriptine 5 mg capsule 5 mg PO TID 30 Days Qty: 90 2RF Rx Instructions: must administer with a meal/food trazodone 50 mg tablet 50 mg PO QDAY 30 Days Qty: 30 2RF amlodipine [Norvasc] 5 mg tablet 5 mg PO QDAY 30 Days Qty: 30 2RF levofloxacin 250 mg/10 mL Solution 500 mg PO QDAY 5 Days Qty: 100 0RF insulin glargine [Lantus U-100 Insulin] 100 unit/mL solution 10 unit subcut DAILY Qty: 0 0RF ipratropium-albuterol 0.5 mg-3 mg(2.5 mg base)/3 mL solution for nebulization 3 ml inhalation Q4-6H PRN (Reason: wheezing) Qty: 90 0RF Health Concerns: Post Hospitalization: new medications and changes needed to prevent readmission or further decline. Pt educated and given instructions on all concerns. Plan of Treatment: Continue with present treatment and follow up plan. Pt is to keep follow up ap pointment as instructed and take medications as ordered. Orders to Discharge Patient Discharge Orders: Transfer (Routine); Ordered 12/27/23 Ordered By: Felix Medina Follow ups/Referrals Follow ups/Referrals: Emil Ashraf [Primary Care Provider] - 3 days
[2023-12-27 09:48] VITALS: BMI 22.7
[2023-12-27] MEDS ORDERED: NS 500 ML IV 500 ML IV ONE (09:49)
[2023-12-27] MEDS: NS 500 ML IV 500 ML IV ONE (09:57)
--- NOTE | 2023-12-27 10:00 | EKG ---
Test Reason : tachycardia Blood Pressure : */* mmHG Vent. Rate : 126 BPM Atrial Rate : 126 BPM P-R Int : 130 ms QRS Dur : 64 ms QT Int : 322 ms P-R-T Axes : 75 75 69 degrees QTc Int : 466 ms Sinus tachycardia Possible Left atrial enlargement Borderline ECG When compared with ECG of 19-DEC-2023 09:17, Nonspecific T wave abnormality no longer evident in Inferior leads Confirmed by Hans Moeller MD ([id number]) on 12/27/2023 11:07:29 AM Referred By: Confirmed By: Hans Moeller MD
[2023-12-27 10:25] LABS: BASOPHILS % (AUTO) 0.2 % (0.2-1.0); EOSINOPHILS % (AUTO) 0.5 % (0.9-2.9); HEMATOCRIT 32.2 % (36.0-47.0); HEMOGLOBIN 10.5 g/dL (12.0-16.0); LYMPHOCYTES # (AUTO) 0.5 X10^3/uL (1.3-2.9); LYMPHOCYTES % (AUTO) 6.2 % (21.0-51.0); MEAN CORPUSCULAR HEMOGLOBIN 25.3 pg (27.0-34.0); MEAN CORPUSCULAR HGB CONC 32.7 g/dL (33.0-35.0); MEAN CORPUSCULAR VOLUME 77.4 fL (80.0-100.0); MEAN PLATELET VOLUME 7.8 fL (7.4-11.0); MONOCYTES # (AUTO) 0.3 x10^3/uL (0.3-0.8); NEUTROPHILS # (AUTO) 7.9 x10^3/uL (2.2-4.8); NEUTROPHILS % (AUTO) 90.1 % (42.0-75.0); PLATELET COUNT 239 X10^3/uL (150.0-450.0); RED BLOOD COUNT 4.16 X10^6/uL (3.5-5.4); RED CELL DISTRIBUTION WIDTH 18.7 % (11.6-16.5); WHITE BLOOD COUNT 8.8 X10^3/uL (3.6-10.0)
[2023-12-27 10:39] LABS: BAND NEUTROPHILS % 18 % (0-10); PLATELET MORPHOLOGY COMMENT NORMAL (NORMAL)
[2023-12-27 10:40] LABS: ANISOCYTOSIS SLIGHT; HYPOCHROMASIA 1+; MICROCYTOSIS SLIGHT
[2023-12-27 10:41] LABS: ALANINE AMINOTRANSFERASE 22 Units/L (12-78); ALBUMIN 3.4 g/dL (3.4-5.0); ALKALINE PHOSPHATASE 102 Units/L (46-116); ASPARTATE AMINO TRANSFERASE 18 Units/L (15-37); BLOOD UREA NITROGEN 13 mg/dL (7-18); CALCIUM 9.1 mg/dL (8.5-10.1); CARBON DIOXIDE 25.1 mmol/L (21-32); CHLORIDE 105 mmol/L (98-107); COR NA(FOR HYPERGLY) 145 mmol/L (136-145); CREATININE 0.87 mg/dL (0.55-1.02); GLUCOSE 172 mg/dL (65-99); POTASSIUM 3.6 mmol/L (3.5-5.1); SODIUM 143 mmol/L (136-145); TOTAL PROTEIN 7.3 g/dL (6.4-8.2); eGFR NON BLACK RACES > 60 (>60)
--- NOTE | 2023-12-27 10:45 | RAD ---
EXAM: CHEST, 1 VIEW HISTORY: Shortness of Breath; COMPARISON: CXR 12/24/2023. TECHNIQUE: AP view of the chest FINDINGS: Patient is mildly rotated. The cardiac and mediastinal contours are normal in size. Similar-appearin g left medial base opacity relative to 12/24/2023 study but improved from 12/23/2023. No definite pl eural effusion or pneumothorax. IMPRESSION: Similar-appearing left base opacity that may represent atelectasis or infiltrate. Recommend follow-u p to resolution. THIS IS AN ELECTRONICALLY VERIFIED FINAL REPORT 12/27/2023 10:42 AM - Electronically signed by Troy Reagan MD
[2023-12-27] MEDS ORDERED: ROCEPHIN VIAL 1 GRAM ONE (10:52)
[2023-12-27] MEDS: ROCEPHIN VIAL 1 GRAM IVP ONE (10:55)
[2023-12-27] MEDS ORDERED: CONSULT PHARMACY - POTASSIUM & MAGNESIUM XX SCH (15:30)
[2023-12-27] MEDS: ROCEPHIN VIAL 1 GRAM 1 G in NS 100 ML IV 100 ML IV SCH (17:45)
[2023-12-27] MEDS ORDERED: PEPCID TAB 20 MG PO PRN (17:45)
[2023-12-27] MEDS: NS 250 ML IV 250 ML IV SCH (17:58)
--- NOTE | 2023-12-27 18:05 | RAD ---
EXAM: CHEST HISTORY: picc line placement; COMPARISON: None. TECHNIQUE: Frontal view of the chest was submitted for interpretation. FINDINGS: Right-sided PICC line projects over the right subclavian vein. The cardiomediastinal silhouette is w ithin normal limits. Lungs show no focal consolidation, pneumothorax, or pleural fluid. IMPRESSION: Right PICC line tip projects over the expected position of the right subclavian vein. THIS IS AN ELECTRONICALLY VERIFIED FINAL REPORT 12/27/2023 6:02 PM - Electronically signed by Sung Martini MD
[2023-12-27] MEDS: K-DUR TAB 20 MEQ PO ONE (18:48)
[2023-12-27] MEDS: ROBITUSSIN DM PO PRN (19:15)
[2023-12-27] MEDS: NS 1,000 ML IV 1,000 ML IV SCH (19:15)
[2023-12-27] MEDS: TUSSIONEX PENNKINETIC SUSP PO PRN (19:15)
[2023-12-27] MEDS: LOPRESSOR TAB 50 MG PO SCH (20:09)
[2023-12-27] MEDS: DUONEB 0.5 MG/3 MG (3 mL) NEB SCH (21:04)
[2023-12-27] MEDS: SEROquel TAB 25 mg PO SCH (21:13)
[2023-12-27] MEDS: PARLODEL PO SCH (23:23)
[2023-12-28 06:17] LABS: BASOPHILS % (AUTO) 0.5 % (0.2-1.0); EOSINOPHILS # (AUTO) 0.1 x10^3/uL (0.0-0.2); EOSINOPHILS % (AUTO) 2.9 % (0.9-2.9); HEMATOCRIT 28.6 % (36.0-47.0); HEMOGLOBIN 9.3 g/dL (12.0-16.0); LYMPHOCYTES # (AUTO) 1.2 X10^3/uL (1.3-2.9); MEAN CORPUSCULAR HEMOGLOBIN 25.1 pg (27.0-34.0); MEAN CORPUSCULAR HGB CONC 32.3 g/dL (33.0-35.0); MEAN CORPUSCULAR VOLUME 77.7 fL (80.0-100.0); MEAN PLATELET VOLUME 7.7 fL (7.4-11.0); MONOCYTES # (AUTO) 0.4 x10^3/uL (0.3-0.8); MONOCYTES % (AUTO) 9.3 % (0.0-13.0); NEUTROPHILS # (AUTO) 2.2 x10^3/uL (2.2-4.8); NEUTROPHILS % (AUTO) 56.3 % (42.0-75.0); PLATELET COUNT 223 X10^3/uL (150.0-450.0); RED BLOOD COUNT 3.68 X10^6/uL (3.5-5.4); RED CELL DISTRIBUTION WIDTH 18.3 % (11.6-16.5)
[2023-12-28 06:29] LABS: ALANINE AMINOTRANSFERASE 22 Units/L (12-78); ALBUMIN 2.9 g/dL (3.4-5.0); ALKALINE PHOSPHATASE 83 Units/L (46-116); ASPARTATE AMINO TRANSFERASE 19 Units/L (15-37); BLOOD UREA NITROGEN 8 mg/dL (7-18); CALCIUM 8.3 mg/dL (8.5-10.1); CARBON DIOXIDE 27.1 mmol/L (21-32); CHLORIDE 110 mmol/L (98-107); COR CA(FOR HYPOALB) 9.2 mg/dL (8.5-10.1); CREATININE 0.66 mg/dL (0.55-1.02); GLUCOSE 98 mg/dL (65-99); SODIUM 145 mmol/L (136-145); TOTAL PROTEIN 6.4 g/dL (6.4-8.2); eGFR NON BLACK RACES > 60 (>60)
--- NOTE | 2023-12-28 06:50 | RAD ---
EXAM: Portable chest HISTORY: Cough COMPARISON: 12/27/2023 FINDINGS: Previously noted right PICC line is no longer identified. Patient is rotated to the left. Heart s ize is normal. Nicole are normal. Lungs are well inflated. Right lung and left upper lung maddox are clear. There is small retrocardiac left lower lobe lung infiltrate likely pneumonia. No pleural ef fusions are identified. Bony thorax is unremarkable. IMPRESSION: Small retrocardiac left lower lobe infiltrate suspicious for developing pneumonia THIS IS AN ELECTRONICALLY VERIFIED FINAL REPORT 12/28/2023 6:47 AM - Electronically signed by Chip Downs MD
[2023-12-28] MEDS: DUONEB 0.5 MG/3 MG (3 mL) NEB ONE (07:09)
[2023-12-28] MEDS: ZOSYN VIAL 3.375 GRAMS 3.375 G in NS 100 ML IV 100 ML IV SCH (09:34)
[2023-12-28] MEDS: NORVASC TAB 5 MG PO SCH (09:34)
--- NOTE | 2023-12-28 10:10 | CT ---
EXAM:CHEST W/O CONHISTORY:pneumonia;COMPARISON:No relevant prior studies were available for comparison at the time of interpretation..TECHNIQUE:CT images were obtained. Multiplanar reconstructions were created on a separate workstation and used during interpretation. All CT scans at this facility is dose modulation, iterative reconstruction, and/or weight-based dosing as appropriate to reduce radiation to levels as low as reasonably achievable (ALARA). Postprocessing details, radiation dose, and contrast dose (if applicable) are recorded in the patient's medical record.FINDINGS:Lower Neck: No acute soft tissue abnormality. No actionable thyroid nodule.Lymph nodes: No visualized cervical, supraclavicular, axillary, mediastinal, or hilar adenopathyUpper abdomen: No acute abnormality identified in the visualized upper abdomen.Cardiomediastinum: No acute cardiac abnormality.Vascular: Normal aortic caliber. No significant branch vessel calcification. No pulmonary artery dilation.Lungs: Left lower lobe atelectasis is noted. No definite alveolar opacity.. No effusion or pneumothoraxOsseous structures: No acute osseous abnormality. No destructive osseous lesion.IMPRESSION:1. Left lower lobe atelectasis without definite alveolar opacityTHIS IS AN ELECTRONICALLY VERIFIED FINAL REPORT12/28/2023 10:07 AM - Electronically signed by Garcia Saini MD
--- NOTE | 2023-12-28 22:11 | DR.H&P ---
H&P History & Physical for Day of: H&P Date: 12/27/23 Chief Complaint Chief Complaint: shortness of breath Allergies Allergies Allergy/AdvReac Type Severity Reaction Status Date / Time No Known Drug Allergies Allergy Unknown Verified 12/19/23 09:01 History of Present Illness History of Present Illness: Patient is a 48-year-old female with past medical history of intellectual disability, diabetes mellitus, hypertension, presenting with cough and diaphoresis. Per mother, patient had a "coughing fit" and became "sweaty". Mother became concerned and brought patient to ER. Labs/imaging: WBC 8.8, hemoglobin 10.5, platelets 239, sodium 143, potassium 3.6, Creatinine 0.87, glucose 172, CXR was obtained that revealed: Small retrocardiac left lower lobe infiltrate suspicious for developing pneumonia. Patient was admitted for pneumonia. She was started on IV antibiotics Zosyn. Will restart home medications. She is requiring supplemental oxygen of 2 L. Scheduled bronchodilators. Continue to closely monitor and follow-up labs/imaging. Past Medical History Past Medical History: Anxiety, CVA, Diabetes, GERD and Hypertension Past Surgical History Surgical History: Neurosurgery and Lithotripsy Family History Family Medical History: Diabetes Mellitus and Hypertension Social History Does patient currently use any type of tobacco product: No Have you used tobacco products in the last 12 months: No Type of Tobacco Use: None Does any household member use tobacco: No Alcohol Use: None Drug Use: None Medications Home Medications: Home Medications Medication Instructions Recorded Confirmed Type insulin glargine 100 unit/mL 30 unit subcut DAILY 12/27/23 12/27/23 History subcutaneous solution (Lantus U-100 Insulin) trazodone 50 mg tablet 50 mg PO Q6HR PRN 12/27/23 12/27/23 History levofloxacin 500 mg tablet 500 mg PO QDAY 12/28/23 12/28/23 History Labs 12/28/23 05:48 12/28/23 05:48 Labs: Laboratory WBC 4.0 X10^3/uL (3.6-10.0) 12/28/23 05:48 RBC 3.68 X10^6/uL (3.5-5.4) 12/28/23 05:48 Hgb 9.3 g/dL (12.0-16.0) L 12/28/23 05:48 Hct 28.6 % (36.0-47.0) L 12/28/23 05:48 MCV 77.7 fL (80.0-100.0) L 12/28/23 05:48 MCH 25.1 pg (27.0-34.0) L 12/28/23 05:48 MCHC 32.3 g/dL (33.0-35.0) L 12/28/23 05:48 RDW 18.3 % (11.6-16.5) H 12/28/23 05:48 Plt Count 223 X10^3/uL (150.0-450.0) 12/28/23 05:48 Plt Count Comment Adequate (ADEQUATE) 12/27/23 10:10 MPV 7.7 fL (7.4-11.0) 12/28/23 05:48 Neut % (Auto) 56.3 % (42.0-75.0) 12/28/23 05:48 Lymph % (Auto) 31.0 % (21.0-51.0) 12/28/23 05:48 [place] % (Auto) 9.3 % (0.0-13.0) 12/28/23 05:48 Eos % (Auto) 2.9 % (0.9-2.9) 12/28/23 05:48 Baso % (Auto) 0.5 % (0.2-1.0) 12/28/23 05:48 Neut # (Auto) 2.2 x10^3/uL (2.2-4.8) 12/28/23 05:48 Lymph # (Auto) 1.2 X10^3/uL (1.3-2.9) L 12/28/23 05:48 [place] # (Auto) 0.4 x10^3/uL (0.3-0.8) 12/28/23 05:48 Eos # (Auto) 0.1 x10^3/uL (0.0-0.2) 12/28/23 05:48 Baso # (Auto) 0.0 X10^3/uL (0.0-0.1) 12/28/23 05:48 Absolute Nucleated RBC 0.1 /100WBC 12/28/23 05:48 Total Counted 100 12/27/23 10:10 Neutrophils % (Manual) 74 % (39-76) 12/27/23 10:10 Band Neutrophils % 18 % (0-10) H 12/27/23 10:10 Lymphocytes % (Manual) 7 % (13-43) L 12/27/23 10:10 Monocytes % (Manual) 1 % (4-9) L 12/27/23 10:10 Plt Morphology Comment Normal (NORMAL) 12/27/23 10:10 RBC Morphology Abnormal (NORMAL) A 12/27/23 10:10 Hypochromasia 1+ A 12/27/23 10:10 Anisocytosis Slight A 12/27/23 10:10 Microcytosis Slight A 12/27/23 10:10 Sodium 145 mmol/L (136-145) 12/28/23 05:48 Corrected Sodium TNP 12/28/23 05:48 Potassium 4.0 mmol/L (3.5-5.1) 12/28/23 05:48 Chloride 110 mmol/L (98-107) H 12/28/23 05:48 Carbon Dioxide 27.1 mmol/L (21-32) 12/28/23 05:48 BUN 8 mg/dL (7-18) 12/28/23 05:48 Creatinine 0.66 mg/dL (0.55-1.02) 12/28/23 05:48 Est GFR (MDRD) Af Amer > 60 (>60) 12/28/23 05:48 Est GFR (MDRD) Non-Af > 60 (>60) 12/28/23 05:48 Glucose 98 mg/dL (65-99) 12/28/23 05:48 POC Glucose (mg/dL) 153 mg/dL (65-99) H 12/28/23 20:12 Lactic Acid 0.9 mmol/L (0.4-2.0) 12/27/23 10:10 Calcium 8.3 mg/dL (8.5-10.1) L 12/28/23 05:48 Corrected Calcium 9.2 mg/dL (8.5-10.1) 12/28/23 05:48 Total Bilirubin 0.20 mg/dL (0.2-1.0) 12/28/23 05:48 AST 19 Units/L (15-37) 12/28/23 05:48 ALT 22 Units/L (12-78) 12/28/23 05:48 Alkaline Phosphatase 83 Units/L (46-116) 12/28/23 05:48 Troponin I High Sens 38.1 ng/L (4.0-60.0) 12/27/23 10:10 Total Protein 6.4 g/dL (6.4-8.2) 12/28/23 05:48 Albumin 2.9 g/dL (3.4-5.0) L 12/28/23 05:48 Globulin 3.5 g/dL (2.5-4.5) 12/28/23 05:48 Albumin/Globulin Ratio 0.8 Ratio (1.1-2.1) L 12/28/23 05:48 SARS-CoV-2 (PCR) Negative (NEGATIVE) 12/27/23 09:54 Influenza Type A (PCR) Negative (NEGATIVE) 12/27/23 09:54 Influenza Type B (PCR) Negative (NEGATIVE) 12/27/23 09:54 RSV (PCR) Negative (NEGATIVE) 12/27/23 09:54 Review of Systems Constitutional: No Symptoms Reported Eyes: No Symptoms Reported ENT: No Symptoms Reported Respiratory: Cough and Shortness of Breath Cardiovascular: No Symptoms Reported Gastrointestinal: No Symptoms Reported Genitourinary: No Symptoms Reported Musculoskeletal: No Symptoms Reported Skin: No Symptoms Reported Neurological: No Symptoms Reported Physical Exam Vital Signs: Vital Signs Temperature 98.0 F Temperature 97.7 F Pulse Rate [Left Brachial] 87 Pulse Rate [Left Brachial] 76 Pulse Rate 87 Respiratory Rate 19 Respiratory Rate 20 Blood Pressure [Right Arm] 112/74 Blood Pressure [Right Arm] 116/58 O2 Sat by Pulse Oximetry 98 O2 Sat by Pulse Oximetry 100 O2 Sat by Pulse Oximetry 100 Oriented: Normal Eyes: Normal Ear: Normal Nose: Normal Throat: Normal Respiratory: Clear Throughout Cardiovascular: Normal : Normal Auscultation: Bowel Sounds: Normal Palpation: Normal Tenderness: Normal Skin: Normal Musculoskeletal: Normal Psychiatric: Normal Mood Description: Calm and Appropriate Affect: Normal Speech Pattern: Clear and Appropriate Assessment/Plan (1) Pneumonia: Status: Acute Plan: Continue antibiotics, bronchodilators and current treatment plan. Review H&P Reviewed: Yes Patient was examined?: Yes
--- NOTE | 2023-12-28 22:40 | PCM.PROG ---
Progress Note Progress Note for Day of Date of Exam: 12/28/23 Subjective Subjective: Patient is a 48-year-old female with past medical history of intellectual disability, diabetes mellitus, hypertension, that is admitted for pneumonia. Patient due to her intellectual disability is a poor historian. Discussed with mother the symptoms that patient was exhibiting before she came back to the ER for readmission. Mother also appears to be a poor historian with difficulty understanding the condition of her daughter, as well as not able to provide accurate description of why the patient needed to come to the ER other than having persistent cough and being diaphoretic. Patient does have multiple co-morbidities and mother is reluctant to understand the severity of her chronic conditions. Mother has allowed patient to continue with oral intake with acknowledgement of the risk of having aspiration that could lead to pneumonia. She has also declined and ignored the medical advice of having PEG tube placement to help reduce that risk of aspiration pneumonia. Labs/imaging: WBC 4.0, hemoglobin 9.3, platelets 223, sodium 145, potassium 4.0, Creatinine 0.66, glucose 98, CT of the chest was obtained that revealed: Left lower lobe atelectasis without definite alveolar opacity. Pt is currently on IV antibiotics Zosyn. Home medications have been resumed. Scheduled bronchodilators. Mother does want discontinuation of bromocriptine and metoprolol which after reviewing vitals seems appropriate at this time. Will discontinue medications and continue to monitor vitals. Can make adjustments as needed. Review of CT does confirm that pneumonia does appear to be resolved and patient can be discharged over the weekend with appropriate education for mother. Continue to closely monitor and follow-up labs/imaging. Past Medical Family Social History Allergies: Allergies No Known Drug Allergies Allergy (Unknown, Verified 12/19/23 09:01) Onset Date: 07/02/2019 Review of Systems ROS changes noted: see HPI Vital Signs and I&O's Vital Signs: Vital Signs Temperature 98.0 F Temperature 97.7 F Pulse Rate [Left Brachial] 87 Pulse Rate [Left Brachial] 76 Pulse Rate 87 Respiratory Rate 19 Respiratory Rate 20 Blood Pressure [Right Arm] 112/74 Blood Pressure [Right Arm] 116/58 O2 Sat by Pulse Oximetry 98 O2 Sat by Pulse Oximetry 100 O2 Sat by Pulse Oximetry 100 Intake and Output: Intake & Output 12/25/23 12/26/23 12/27/23 12/28/23 23:59 23:59 23:59 23:59 Intake Total 432 / 432 1123 / 1123 Balance 432 / 432 1123 / 1123 Physical Exam Oriented: Other (intellectual disability) Eyes: Normal Ear: Normal Nose: Normal Throat: Normal Respiratory: Normal Cardiovascular: Normal : Normal Auscultation: Bowel Sounds: Normal Palpation: Normal Tenderness: Normal Skin: Normal Musculoskeletal: Normal Psychiatric: Normal Mood Description: Calm and Appropriate Affect: Normal Speech Pattern: Clear and Appropriate Laboratory and Diagnostics 12/28/23 05:48 12/28/23 05:48 Labs: Laboratory WBC 4.0 X10^3/uL (3.6-10.0) 12/28/23 05:48 RBC 3.68 X10^6/uL (3.5-5.4) 12/28/23 05:48 Hgb 9.3 g/dL (12.0-16.0) L 12/28/23 05:48 Hct 28.6 % (36.0-47.0) L 12/28/23 05:48 MCV 77.7 fL (80.0-100.0) L 12/28/23 05:48 MCH 25.1 pg (27.0-34.0) L 12/28/23 05:48 MCHC 32.3 g/dL (33.0-35.0) L 12/28/23 05:48 RDW 18.3 % (11.6-16.5) H 12/28/23 05:48 Plt Count 223 X10^3/uL (150.0-450.0) 12/28/23 05:48 Plt Count Comment Adequate (ADEQUATE) 12/27/23 10:10 MPV 7.7 fL (7.4-11.0) 12/28/23 05:48 Neut % (Auto) 56.3 % (42.0-75.0) 12/28/23 05:48 Lymph % (Auto) 31.0 % (21.0-51.0) 12/28/23 05:48 [place] % (Auto) 9.3 % (0.0-13.0) 12/28/23 05:48 Eos % (Auto) 2.9 % (0.9-2.9) 12/28/23 05:48 Baso % (Auto) 0.5 % (0.2-1.0) 12/28/23 05:48 Neut # (Auto) 2.2 x10^3/uL (2.2-4.8) 12/28/23 05:48 Lymph # (Auto) 1.2 X10^3/uL (1.3-2.9) L 12/28/23 05:48 [place] # (Auto) 0.4 x10^3/uL (0.3-0.8) 12/28/23 05:48 Eos # (Auto) 0.1 x10^3/uL (0.0-0.2) 12/28/23 05:48 Baso # (Auto) 0.0 X10^3/uL (0.0-0.1) 12/28/23 05:48 Absolute Nucleated RBC 0.1 /100WBC 12/28/23 05:48 Total Counted 100 12/27/23 10:10 Neutrophils % (Manual) 74 % (39-76) 12/27/23 10:10 Band Neutrophils % 18 % (0-10) H 12/27/23 10:10 Lymphocytes % (Manual) 7 % (13-43) L 12/27/23 10:10 Monocytes % (Manual) 1 % (4-9) L 12/27/23 10:10 Plt Morphology Comment Normal (NORMAL) 12/27/23 10:10 RBC Morphology Abnormal (NORMAL) A 12/27/23 10:10 Hypochromasia 1+ A 12/27/23 10:10 Anisocytosis Slight A 12/27/23 10:10 Microcytosis Slight A 12/27/23 10:10 Sodium 145 mmol/L (136-145) 12/28/23 05:48 Corrected Sodium TNP 12/28/23 05:48 Potassium 4.0 mmol/L (3.5-5.1) 12/28/23 05:48 Chloride 110 mmol/L (98-107) H 12/28/23 05:48 Carbon Dioxide 27.1 mmol/L (21-32) 12/28/23 05:48 BUN 8 mg/dL (7-18) 12/28/23 05:48 Creatinine 0.66 mg/dL (0.55-1.02) 12/28/23 05:48 Est GFR (MDRD) Af Amer > 60 (>60) 12/28/23 05:48 Est GFR (MDRD) Non-Af > 60 (>60) 12/28/23 05:48 Glucose 98 mg/dL (65-99) 12/28/23 05:48 POC Glucose (mg/dL) 153 mg/dL (65-99) H 12/28/23 20:12 Lactic Acid 0.9 mmol/L (0.4-2.0) 12/27/23 10:10 Calcium 8.3 mg/dL (8.5-10.1) L 12/28/23 05:48 Corrected Calcium 9.2 mg/dL (8.5-10.1) 12/28/23 05:48 Total Bilirubin 0.20 mg/dL (0.2-1.0) 12/28/23 05:48 AST 19 Units/L (15-37) 12/28/23 05:48 ALT 22 Units/L (12-78) 12/28/23 05:48 Alkaline Phosphatase 83 Units/L (46-116) 12/28/23 05:48 Troponin I High Sens 38.1 ng/L (4.0-60.0) 12/27/23 10:10 Total Protein 6.4 g/dL (6.4-8.2) 12/28/23 05:48 Albumin 2.9 g/dL (3.4-5.0) L 12/28/23 05:48 Globulin 3.5 g/dL (2.5-4.5) 12/28/23 05:48 Albumin/Globulin Ratio 0.8 Ratio (1.1-2.1) L 12/28/23 05:48 SARS-CoV-2 (PCR) Negative (NEGATIVE) 12/27/23 09:54 Influenza Type A (PCR) Negative (NEGATIVE) 12/27/23 09:54 Influenza Type B (PCR) Negative (NEGATIVE) 12/27/23 09:54 RSV (PCR) Negative (NEGATIVE) 12/27/23 09:54 Plan (1) Pneumonia: Status: Acute Plan: Continue antibiotics, bronchodilators and current treatment plan.
[2023-12-29 05:47] LABS: BASOPHILS % (AUTO) 0.4 % (0.2-1.0); EOSINOPHILS # (AUTO) 0.2 x10^3/uL (0.0-0.2); EOSINOPHILS % (AUTO) 4.9 % (0.9-2.9); HEMATOCRIT 26.7 % (36.0-47.0); HEMOGLOBIN 8.9 g/dL (12.0-16.0); LYMPHOCYTES # (AUTO) 0.6 X10^3/uL (1.3-2.9); LYMPHOCYTES % (AUTO) 17.9 % (21.0-51.0); MEAN CORPUSCULAR HEMOGLOBIN 25.7 pg (27.0-34.0); MEAN CORPUSCULAR HGB CONC 33.1 g/dL (33.0-35.0); MEAN CORPUSCULAR VOLUME 77.4 fL (80.0-100.0); MONOCYTES # (AUTO) 0.3 x10^3/uL (0.3-0.8); MONOCYTES % (AUTO) 9.2 % (0.0-13.0); NEUTROPHILS # (AUTO) 2.1 x10^3/uL (2.2-4.8); NEUTROPHILS % (AUTO) 67.6 % (42.0-75.0); PLATELET COUNT 214 X10^3/uL (150.0-450.0); RED BLOOD COUNT 3.45 X10^6/uL (3.5-5.4); RED CELL DISTRIBUTION WIDTH 18.3 % (11.6-16.5); WHITE BLOOD COUNT 3.1 X10^3/uL (3.6-10.0)
[2023-12-29 06:01] LABS: ALANINE AMINOTRANSFERASE 23 Units/L (12-78); ALBUMIN 2.8 g/dL (3.4-5.0); ALKALINE PHOSPHATASE 74 Units/L (46-116); ASPARTATE AMINO TRANSFERASE 18 Units/L (15-37); BLOOD UREA NITROGEN 4 mg/dL (7-18); CALCIUM 8.4 mg/dL (8.5-10.1); CARBON DIOXIDE 27.8 mmol/L (21-32); CHLORIDE 110 mmol/L (98-107); COR CA(FOR HYPOALB) 9.4 mg/dL (8.5-10.1); CREATININE 0.72 mg/dL (0.55-1.02); GLUCOSE 82 mg/dL (65-99); POTASSIUM 3.8 mmol/L (3.5-5.1); SODIUM 145 mmol/L (136-145); TOTAL PROTEIN 6.2 g/dL (6.4-8.2); eGFR NON BLACK RACES > 60 (>60)
[2023-12-29] MEDS ORDERED: CONSULT PHARMACY - POTASSIUM & MAGNESIUM XX SCH (07:00)
[2023-12-29] MEDS: KLOR-CON PO SCH (08:40)
[2023-12-29] MEDS ORDERED: K-DUR TAB 20 MEQ PO SCH (09:00)
[2023-12-29 09:15] LABS: RETICULOCYTE % 2.08 % (0.8-2.2)
[2023-12-29 19:10] LABS: BILIRUBIN,URINE NEGATIVE (NEGATIVE); BLOOD/HEMOGLOBIN,URINE 1+ (NEGATIVE); GLUCOSE, URINE NEGATIVE (NEGATIVE); KETONES,URINE NEGATIVE (NEGATIVE); LEUKOCYTE ESTERASE ,URINE 2+ (NEGATIVE); NITRITES,URINE NEGATIVE (NEGATIVE); PROTEIN,URINE NEGATIVE (NEGATIVE); UROBILINOGEN,URINE NORMAL (NORMAL)
[2023-12-29 19:16] LABS: APPEARANCE,URINE CLEAR (CLEAR); COLOR,URINE STRAW (YELLOW)
[2023-12-29 19:24] LABS: BACTERIA,URINE TRACE /HPF (NEGATIVE); RBC,URINE 0-2 /HPF (0-3); SQUAMOUS EPITHELIAL CELL,UR FEW /HPF (NEGATIVE)
[2023-12-29] MEDS ORDERED: SEROquel TAB 25 mg PO ONE (21:05)
[2023-12-30 06:02] LABS: BASOPHILS % (AUTO) 0.5 % (0.2-1.0); EOSINOPHILS # (AUTO) 0.1 x10^3/uL (0.0-0.2); EOSINOPHILS % (AUTO) 2.8 % (0.9-2.9); HEMATOCRIT 27.8 % (36.0-47.0); HEMOGLOBIN 9.1 g/dL (12.0-16.0); LYMPHOCYTES # (AUTO) 0.6 X10^3/uL (1.3-2.9); LYMPHOCYTES % (AUTO) 15.1 % (21.0-51.0); MEAN CORPUSCULAR HEMOGLOBIN 25.3 pg (27.0-34.0); MEAN CORPUSCULAR HGB CONC 32.7 g/dL (33.0-35.0); MEAN CORPUSCULAR VOLUME 77.4 fL (80.0-100.0); MONOCYTES # (AUTO) 0.3 x10^3/uL (0.3-0.8); MONOCYTES % (AUTO) 6.8 % (0.0-13.0); NEUTROPHILS % (AUTO) 74.8 % (42.0-75.0); PLATELET COUNT 230 X10^3/uL (150.0-450.0); RED CELL DISTRIBUTION WIDTH 18.4 % (11.6-16.5)
[2023-12-30 06:19] LABS: ALANINE AMINOTRANSFERASE 22 Units/L (12-78); ALBUMIN 2.9 g/dL (3.4-5.0); ALKALINE PHOSPHATASE 81 Units/L (46-116); ASPARTATE AMINO TRANSFERASE 24 Units/L (15-37); BLOOD UREA NITROGEN 4 mg/dL (7-18); CALCIUM 8.6 mg/dL (8.5-10.1); CARBON DIOXIDE 29.6 mmol/L (21-32); CHLORIDE 109 mmol/L (98-107); COR CA(FOR HYPOALB) 9.5 mg/dL (8.5-10.1); CREATININE 0.63 mg/dL (0.55-1.02); GLUCOSE 83 mg/dL (65-99); POTASSIUM 4.2 mmol/L (3.5-5.1); SODIUM 145 mmol/L (136-145); TOTAL PROTEIN 6.5 g/dL (6.4-8.2); eGFR NON BLACK RACES > 60 (>60)
--- NOTE | 2023-12-30 13:40 | RAD ---
EXAM: CHEST, PA/LAT ADULT HISTORY: pneumonia; COMPARISON: December 28, 2023 FINDINGS: Heart: Borderline heart size. Lungs: Slight subsegmental atelectasis or scarring left base Pleural space: no pneumothorax or effusion. Bones: the bony thorax appears age appropriate. IMPRESSION: 1. Borderline heart size. 2. Slight subsegmental atelectasis or scarring left base. THIS IS AN ELECTRONICALLY VERIFIED FINAL REPORT 12/30/2023 1:36 PM - Electronically signed by Timi Quach DO
[2023-12-31 06:01] LABS: BASOPHILS % (AUTO) 0.5 % (0.2-1.0); EOSINOPHILS # (AUTO) 0.1 x10^3/uL (0.0-0.2); HEMATOCRIT 26.8 % (36.0-47.0); HEMOGLOBIN 8.8 g/dL (12.0-16.0); LYMPHOCYTES # (AUTO) 0.5 X10^3/uL (1.3-2.9); LYMPHOCYTES % (AUTO) 12.8 % (21.0-51.0); MEAN CORPUSCULAR HEMOGLOBIN 25.5 pg (27.0-34.0); MEAN CORPUSCULAR HGB CONC 32.9 g/dL (33.0-35.0); MEAN CORPUSCULAR VOLUME 77.6 fL (80.0-100.0); MEAN PLATELET VOLUME 7.6 fL (7.4-11.0); MONOCYTES # (AUTO) 0.3 x10^3/uL (0.3-0.8); MONOCYTES % (AUTO) 7.9 % (0.0-13.0); NEUTROPHILS # (AUTO) 2.9 x10^3/uL (2.2-4.8); NEUTROPHILS % (AUTO) 75.8 % (42.0-75.0); PLATELET COUNT 224 X10^3/uL (150.0-450.0); RED BLOOD COUNT 3.46 X10^6/uL (3.5-5.4); RED CELL DISTRIBUTION WIDTH 18.8 % (11.6-16.5); WHITE BLOOD COUNT 3.8 X10^3/uL (3.6-10.0)
[2023-12-31 06:14] LABS: ALANINE AMINOTRANSFERASE 19 Units/L (12-78); ALBUMIN 2.9 g/dL (3.4-5.0); ALKALINE PHOSPHATASE 75 Units/L (46-116); ASPARTATE AMINO TRANSFERASE 15 Units/L (15-37); BLOOD UREA NITROGEN 3 mg/dL (7-18); CALCIUM 8.6 mg/dL (8.5-10.1); CARBON DIOXIDE 29.1 mmol/L (21-32); CHLORIDE 108 mmol/L (98-107); COR CA(FOR HYPOALB) 9.5 mg/dL (8.5-10.1); CREATININE 0.66 mg/dL (0.55-1.02); GLUCOSE 104 mg/dL (65-99); POTASSIUM 3.6 mmol/L (3.5-5.1); SODIUM 147 mmol/L (136-145); TOTAL PROTEIN 6.5 g/dL (6.4-8.2); eGFR NON BLACK RACES > 60 (>60)
[2023-12-31] MEDS ORDERED: CONSULT PHARMACY - POTASSIUM & MAGNESIUM XX SCH (07:00)
[2023-12-31] MEDS: K-DUR TAB 20 MEQ PO SCH (08:54)
[2023-12-31] MEDS: MAG-OX TAB PO SCH (08:55)
--- NOTE | 2023-12-31 09:42 | PCM.PROG ---
Progress Note Progress Note for Day of Date of Exam: 12/31/23 Subjective Subjective: Patient seen at bedside, no acute events overnight. Mother also present in the room. She states patient is doing better, her breathing is better with the oxygen on. She remains on 2L NC. She was admitted for pneumonia. Her CXR has been stable with no worsening. Patient's blood Cx on admission was noted to be positive for Gram + cocci. Labs/imaging reviewed -Hgb 8.8 Na: 147 K:3.6 Mag 1.7 Plan: Continue IV Zosyn. Repeat blood Cx. Replace electrolytes prn. Continue with bronchodilators. Wean O2 as tolerated. Will ask RT to evaluate patient for home O2. Patient has had recurrent admissions for pneumonia. Monitor AM labs/imaging. Past Medical Family Social History Allergies: Allergies No Known Drug Allergies Allergy (Unknown, Verified 12/19/23 09:01) Onset Date: 07/02/2019 Vital Signs and I&O's Vital Signs: Vital Signs Temperature 97.9 F Pulse Rate [Left Brachial] 94 Pulse Rate 83 Respiratory Rate 20 Blood Pressure [Right Arm] 118/67 O2 Sat by Pulse Oximetry 96 O2 Sat by Pulse Oximetry 100 Intake and Output: Intake & Output 12/28/23 12/29/23 12/30/23 12/31/23 23:59 23:59 23:59 23:59 Intake Total 1223 / 1223 3318 / 3318 2568 / 2568 742 / 742 Balance 1223 / 1223 3318 / 3318 2568 / 2568 742 / 742 Physical Exam Oriented: Other (intellectual disability) Eyes: Normal Ear: Normal Nose: Normal Throat: Normal Respiratory: Generalized and Diminished Cardiovascular: Normal Auscultation: Bowel Sounds: Normal Palpation: Normal Tenderness: Normal Skin: Normal Musculoskeletal: Normal Psychiatric: Normal Mood Description: Calm and Appropriate Affect: Normal Speech Pattern: Appropriate Laboratory and Diagnostics 12/31/23 05:39 12/31/23 05:39 Labs: 12/27/23 10:10 Blood Blood Culture - Preliminary Laboratory WBC 3.8 X10^3/uL (3.6-10.0) 12/31/23 05:39 RBC 3.46 X10^6/uL (3.5-5.4) L 12/31/23 05:39 Hgb 8.8 g/dL (12.0-16.0) L 12/31/23 05:39 Hct 26.8 % (36.0-47.0) L 12/31/23 05:39 MCV 77.6 fL (80.0-100.0) L 12/31/23 05:39 MCH 25.5 pg (27.0-34.0) L 12/31/23 05:39 MCHC 32.9 g/dL (33.0-35.0) L 12/31/23 05:39 RDW 18.8 % (11.6-16.5) H 12/31/23 05:39 Plt Count 224 X10^3/uL (150.0-450.0) 12/31/23 05:39 Plt Count Comment Adequate (ADEQUATE) 12/27/23 10:10 MPV 7.6 fL (7.4-11.0) 12/31/23 05:39 Neut % (Auto) 75.8 % (42.0-75.0) H 12/31/23 05:39 Lymph % (Auto) 12.8 % (21.0-51.0) L 12/31/23 05:39 [place] % (Auto) 7.9 % (0.0-13.0) 12/31/23 05:39 Eos % (Auto) 3.0 % (0.9-2.9) H 12/31/23 05:39 Baso % (Auto) 0.5 % (0.2-1.0) 12/31/23 05:39 Neut # (Auto) 2.9 x10^3/uL (2.2-4.8) 12/31/23 05:39 Lymph # (Auto) 0.5 X10^3/uL (1.3-2.9) L 12/31/23 05:39 [place] # (Auto) 0.3 x10^3/uL (0.3-0.8) 12/31/23 05:39 Eos # (Auto) 0.1 x10^3/uL (0.0-0.2) 12/31/23 05:39 Baso # (Auto) 0.0 X10^3/uL (0.0-0.1) 12/31/23 05:39 Absolute Nucleated RBC 0.0 /100WBC 12/31/23 05:39 Total Counted 100 12/27/23 10:10 Neutrophils % (Manual) 74 % (39-76) 12/27/23 10:10 Band Neutrophils % 18 % (0-10) H 12/27/23 10:10 Lymphocytes % (Manual) 7 % (13-43) L 12/27/23 10:10 Monocytes % (Manual) 1 % (4-9) L 12/27/23 10:10 Plt Morphology Comment Normal (NORMAL) 12/27/23 10:10 RBC Morphology Abnormal (NORMAL) A 12/27/23 10:10 Hypochromasia 1+ A 12/27/23 10:10 Anisocytosis Slight A 12/27/23 10:10 Microcytosis Slight A 12/27/23 10:10 Absolute Retic 0.0717 10^6/uL 12/29/23 04:42 Percent Retic 2.08 % (0.8-2.2) 12/29/23 04:42 Sodium 147 mmol/L (136-145) H 12/31/23 05:39 Corrected Sodium TNP 12/31/23 05:39 Potassium 3.6 mmol/L (3.5-5.1) 12/31/23 05:39 Chloride 108 mmol/L (98-107) H 12/31/23 05:39 Carbon Dioxide 29.1 mmol/L (21-32) 12/31/23 05:39 BUN 3 mg/dL (7-18) L 12/31/23 05:39 Creatinine 0.66 mg/dL (0.55-1.02) 12/31/23 05:39 Est GFR (MDRD) Af Amer > 60 (>60) 12/31/23 05:39 Est GFR (MDRD) Non-Af > 60 (>60) 12/31/23 05:39 Glucose 104 mg/dL (65-99) H 12/31/23 05:39 POC Glucose (mg/dL) 105 mg/dL (65-99) H 12/31/23 05:38 Lactic Acid 0.9 mmol/L (0.4-2.0) 12/27/23 10:10 Calcium 8.6 mg/dL (8.5-10.1) 12/31/23 05:39 Corrected Calcium 9.5 mg/dL (8.5-10.1) 12/31/23 05:39 Magnesium 1.7 mg/dL (2.0-2.9) L 12/31/23 05:39 Iron 52 ug/dL (50-175) 12/29/23 04:42 TIBC 236 ug/dL (250-450) L 12/29/23 04:42 Transferrin 174 mg/dL (202-364) L 12/29/23 04:42 Ferritin 373 ng/mL (8-252) H 12/29/23 04:42 Total Bilirubin 0.40 mg/dL (0.2-1.0) 12/31/23 05:39 AST 15 Units/L (15-37) 12/31/23 05:39 ALT 19 Units/L (12-78) 12/31/23 05:39 Alkaline Phosphatase 75 Units/L (46-116) 12/31/23 05:39 Troponin I High Sens 38.1 ng/L (4.0-60.0) 12/27/23 10:10 Total Protein 6.5 g/dL (6.4-8.2) 12/31/23 05:39 Albumin 2.9 g/dL (3.4-5.0) L 12/31/23 05:39 Globulin 3.6 g/dL (2.5-4.5) 12/31/23 05:39 Albumin/Globulin Ratio 0.8 Ratio (1.1-2.1) L 12/31/23 05:39 Vitamin B12 639 pg/mL (193-986) 12/29/23 04:42 Folate 18.4 ng/mL (>8.6) 12/29/23 04:42 Specimen Type Clean catch urine 12/29/23 18:59 Urine Color Straw (YELLOW) 12/29/23 18:59 Urine Appearance Clear (CLEAR) 12/29/23 18:59 Urine pH 5.0 (5.0 - 8.0) 12/29/23 18:59 Ur Specific [place] 1.015 (1.000-1.030) 12/29/23 18:59 Urine Protein Negative (NEGATIVE) 12/29/23 18:59 Urine Glucose (UA) Negative (NEGATIVE) 12/29/23 18:59 Urine Ketones Negative (NEGATIVE) 12/29/23 18:59 Urine Blood 1+ (NEGATIVE) 12/29/23 18:59 Urine Nitrite Negative (NEGATIVE) 12/29/23 18:59 Urine Bilirubin Negative (NEGATIVE) 12/29/23 18:59 Urine Urobilinogen Normal (NORMAL) 12/29/23 18:59 Ur Leukocyte Esterase 2+ (NEGATIVE) 12/29/23 18:59 Urine RBC 0-2 /HPF (0-3) 12/29/23 18:59 Urine WBC 0-2 /HPF (0-5) 12/29/23 18:59 Ur Squamous Epith Cells Few /HPF (NEGATIVE) 12/29/23 18:59 Urine Bacteria Trace /HPF (NEGATIVE) 12/29/23 18:59 Ur Culture Indicated? No/not indicated 12/29/23 18:59 SARS-CoV-2 (PCR) Negative (NEGATIVE) 12/27/23 09:54 Influenza Type A (PCR) Negative (NEGATIVE) 12/27/23 09:54 Influenza Type B (PCR) Negative (NEGATIVE) 12/27/23 09:54 RSV (PCR) Negative (NEGATIVE) 12/27/23 09:54 Plan (1) Bacteremia: Status: Acute (2) Pneumonia: Status: Acute Qualifiers: Laterality: left Lung location: unspecified part of lung Pneumonia type: due to unspecified organism Qualified Code(s): J18.9 - Pneumonia, unspecified organism Plan: Continue antibiotics, bronchodilators and current treatment plan. (3) Hypomagnesemia: Status: Acute (4) Diabetes mellitus, labile: Status: Acute (5) Hypernatremia: Status: Acute (6) Insomnia: Status: Acute Qualifiers: Insomnia type: primary Qualified Code(s): F51.01 - Primary insomnia (7) Essential hypertension: Status: Acute
[2023-12-31] MEDS: DESYREL PO PRN (09:52)
[2023-12-31 16:10] VITALS: TEMP 98.9; O2SAT 100
[2024-01-01 00:04] VITALS: BP 00/00; PULSE 109; RESP 0
--- NOTE | 2024-01-01 07:00 | DR.SOBA ---
HPI Time Seen Time Seen by Provider: 12/27/23 09:26 Primary Care Physician Primary Care Physician: DINAH Ortiz Chief Complaint:: MOTHER STATES SHE WOKE UP THIS MORNING WITH SOB, AND SWEATING. SHE WAS DISCHARGED FROM HERE ON SUNDAY. LAST BREATHING TREATMENT WAS YESTERDAY PER MOTHER. COVID-19 Coronavirus risk:travel/contact w/high risk person: No Has patient experienced Coronavirus symptoms: No Source History Provided: Family Member Mode of Arrival Mode of Arrival: EMS Timing Onset of Chief Complaint: 12/27/23 PMH PMH Past Medical History: Yes Past Medical History: Anxiety, CVA, Diabetes, GERD and Hypertension Past Medical History Comment: TRAUMATIC BRAIN INJURY Past Surgical History: Yes Surgical History: Neurosurgery and Lithotripsy Past Surgical History Comment: NEURO SURGERY Family History History of Family Medical Conditions: Yes Family Medical History: Diabetes Mellitus and Hypertension Social History Does patient currently use any type of tobacco product: No Have you used tobacco products in the last 12 months: No Type of Tobacco Use: None Does any household member use tobacco: No Alcohol Use: None Do you use any recreational Drugs:: No Lives With: Family Lives Where: Home Travel Risk Coronavirus risk:travel/contact w/high risk person: No Has patient experienced Coronavirus symptoms: No Infectious screening In the last 2 months have you had wt loss of >10#?: NO Have you had fever, night sweats or hemotysis?: No Have you traveled outside the country in the last 6 months?: No Isolation: Standard [facility] Labs Reviewed 12/31/23 05:39 12/31/23 05:39 Laboratory: 12/27/23 10:10 Blood Blood Culture - Final Staphylococcus Hominis WBC 8.8 X10^3/uL (3.6-10.0) 12/27/23 10:10 RBC 4.16 X10^6/uL (3.5-5.4) 12/27/23 10:10 Hgb 10.5 g/dL (12.0-16.0) L 12/27/23 10:10 Hct 32.2 % (36.0-47.0) L 12/27/23 10:10 MCV 77.4 fL (80.0-100.0) L 12/27/23 10:10 MCH 25.3 pg (27.0-34.0) L 12/27/23 10:10 MCHC 32.7 g/dL (33.0-35.0) L 12/27/23 10:10 RDW 18.7 % (11.6-16.5) H 12/27/23 10:10 Plt Count 239 X10^3/uL (150.0-450.0) 12/27/23 10:10 Plt Count Comment Adequate (ADEQUATE) 12/27/23 10:10 MPV 7.8 fL (7.4-11.0) 12/27/23 10:10 Neut % (Auto) 90.1 % (42.0-75.0) H 12/27/23 10:10 Lymph % (Auto) 6.2 % (21.0-51.0) L 12/27/23 10:10 Sanders % (Auto) 3.0 % (0.0-13.0) 12/27/23 10:10 Eos % (Auto) 0.5 % (0.9-2.9) L 12/27/23 10:10 Baso % (Auto) 0.2 % (0.2-1.0) 12/27/23 10:10 Neut # (Auto) 7.9 x10^3/uL (2.2-4.8) H 12/27/23 10:10 Lymph # (Auto) 0.5 X10^3/uL (1.3-2.9) L 12/27/23 10:10 Sanders # (Auto) 0.3 x10^3/uL (0.3-0.8) 12/27/23 10:10 Eos # (Auto) 0.0 x10^3/uL (0.0-0.2) 12/27/23 10:10 Baso # (Auto) 0.0 X10^3/uL (0.0-0.1) 12/27/23 10:10 Absolute Nucleated RBC 0.1 /100WBC 12/27/23 10:10 Total Counted 100 12/27/23 10:10 Neutrophils % (Manual) 74 % (39-76) 12/27/23 10:10 Band Neutrophils % 18 % (0-10) H 12/27/23 10:10 Lymphocytes % (Manual) 7 % (13-43) L 12/27/23 10:10 Monocytes % (Manual) 1 % (4-9) L 12/27/23 10:10 Plt Morphology Comment Normal (NORMAL) 12/27/23 10:10 RBC Morphology Abnormal (NORMAL) A 12/27/23 10:10 Hypochromasia 1+ A 12/27/23 10:10 Anisocytosis Slight A 12/27/23 10:10 Microcytosis Slight A 12/27/23 10:10 Sodium 143 mmol/L (136-145) 12/27/23 10:10 Corrected Sodium 145 mmol/L (136-145) 12/27/23 10:10 Potassium 3.6 mmol/L (3.5-5.1) 12/27/23 10:10 Chloride 105 mmol/L (98-107) 12/27/23 10:10 Carbon Dioxide 25.1 mmol/L (21-32) 12/27/23 10:10 BUN 13 mg/dL (7-18) 12/27/23 10:10 Creatinine 0.87 mg/dL (0.55-1.02) 12/27/23 10:10 Est GFR (MDRD) Af Amer > 60 (>60) 12/27/23 10:10 Est GFR (MDRD) Non-Af > 60 (>60) 12/27/23 10:10 Glucose 172 mg/dL (65-99) H 12/27/23 10:10 Lactic Acid 0.9 mmol/L (0.4-2.0) 12/27/23 10:10 Calcium 9.1 mg/dL (8.5-10.1) 12/27/23 10:10 Corrected Calcium TNP 12/27/23 10:10 Total Bilirubin 0.30 mg/dL (0.2-1.0) 12/27/23 10:10 AST 18 Units/L (15-37) 12/27/23 10:10 ALT 22 Units/L (12-78) 12/27/23 10:10 Alkaline Phosphatase 102 Units/L (46-116) 12/27/23 10:10 Troponin I High Sens 38.1 ng/L (4.0-60.0) 12/27/23 10:10 Total Protein 7.3 g/dL (6.4-8.2) 12/27/23 10:10 Albumin 3.4 g/dL (3.4-5.0) 12/27/23 10:10 Globulin 3.9 g/dL (2.5-4.5) 12/27/23 10:10 Albumin/Globulin Ratio 0.9 Ratio (1.1-2.1) L 12/27/23 10:10 SARS-CoV-2 (PCR) Negative (NEGATIVE) 12/27/23 09:54 Influenza Type A (PCR) Negative (NEGATIVE) 12/27/23 09:54 Influenza Type B (PCR) Negative (NEGATIVE) 12/27/23 09:54 RSV (PCR) Negative (NEGATIVE) 12/27/23 09:54 Opioid Opioid Risk Tool Age (Kofi box if 16-45): No History of Preadolescent Sexual Abuse: No Total: 0 Total Score Risk Category: Low Risk Copyright: [employer] KAM predicting aberrant behaviors Discharge Plan Diagnosis Discharge Problem: Pneumonia involving left lung Discharge Plan Patient Disposition: 09 ADMITTED INPATIENT Orders to Discharge Patient Discharge Orders: Discharge (Routine); Ordered 01/01/24 Ordered By: ANASTACIO IRWIN
== END 2023-12-31 21:44 | disposition expired ==
LOC: U 09:05 → ER 09:05 → MED/SURG 09:05 → U 15:04
PROVIDERS: ADMIT Family Medicine; ATTEND Family Medicine
DX: R06.02 Shortness of breath; E87.0 Hyperosmolality and hypernatremia; I87.2 Venous insufficiency (chronic) (peripheral); B95.7 Other staphylococcus as the cause of diseases classified elsewhere; E83.42 Hypomagnesemia; Z59.87 Material hardship due to limited financial resources, not elsewhere classified; Z20.822 Contact with and (suspected) exposure to COVID-19; I10 Essential (primary) hypertension; R26.89 Other abnormalities of gait and mobility; R78.81 Bacteremia; R00.0 Tachycardia, unspecified; K21.9 Gastro-esophageal reflux disease without esophagitis; F78.A9 Other genetic related intellectual disability; E11.65 Type 2 diabetes mellitus with hyperglycemia; J18.8 Other pneumonia, unspecified organism